=== PATIENT | female | born 1930 | race Caucasian/White ===

== ENCOUNTER 2016-09-04 17:52 | Inpatient (IN) | payer MEDICARE ==
[~2016-09-04] VITALS: Ht 154.9 cm; Wt 70.9 kg
[~2016-09-04 17:52] MED LIST: ACET-785 PO; AMLO2.5T33 PO; ASPI-611 PO; CHOL200026 PO; GLUCOSAMINE; HYDR25SU38 RECTALLY; IBUP200T52 PO; LEVO500T63 PO; LOSA50TA2 PO; METO25TA6 PO; MULT-336 PO; OCUVITE; OMEG500C7 PO; OMEP-80 PO; OSTEO-BIFLEX; RANI-209 PO; SIMV20TA80 PO; TRAM50TA4 PO; TRIA1TAB93 PO
--- OUTSIDE RECORDS SUMMARY | 2016-09-04 17:55 | XMS REPORT | Continuity of Care Document ---
Author Author [facility] Organization [facility] Address Unknown Phone Unavailable Support Name Relationship Address Phone CHEMA HARTMAN MD Caregiver [address] [place] [address] Unavailable CHEMA HARTMAN MD Caregiver [address] [place] [address] Unavailable EMILY FLYNN MD Caregiver [address] [facility] [address] [place] [address] Unavailable CONSTANTINO MEZA Next Of Kin [address] [place] [address] Insurance Providers Guarantor Alma Meza Address [address] [place] [address] Email DENIED 16 Payer Medicareadvantra Ppo Policy Number [id number] Subscriber's Name NolbertoMarcialAlma Relationship 18 Self Group Number [id number] Advance Directives Directive Response Recorded Date/Time Ordered Resuscitation Status Full Code 08/21/16 5:41pm Resuscitation Documents on File No 08/21/16 1:23pm DPOA for Healthcare Only Y Constantino Meza, daughter, Denys Meza, son 1:23pm Living Will Yes 08/21/16 1:23pm Problems Active Problems Medical Problem Onset Date Status Acute abdominal pain Unknown Resolved Constipation by delayed colonic transit Unknown Acute Contusion, orbital tissues Unknown Acute Dyslipidemia Unknown Chronic Hallucinations Unknown Acute History of breast cancer ~08/2016 Resolved Hypertension Unknown Chronic Hypophosphatemia Unknown Acute Laceration of orbital rim without complication Unknown Acute Leukocytosis Unknown Resolved Nausea Unknown Resolved Osteoarthritis Unknown Chronic Severe sepsis Unknown Acute Thrombocytopenia Unknown Acute Medications Current Home Medications Medication Dose Units Route Directions Days Qty Instructions Start Date Acetaminophen (Tylenol) 325 Mg Tablet 650 Mg Oral Three Times A Day 06/02/13 Amlodipine Besylate (Norvasc) 2.5 Mg Tablet 5 Mg Oral Twice A Day 01/15/14 Aspirin 81 Mg Tablet 81 Mg Oral Daily 12/19/09 Cholecalciferol (Vitamin D3) (Vitamin D-3) 2,000 Unit Capsule Oral Daily 08/21/16 Glucosamine Twice A Day 12/19/09 Hydrocortisone Acetate (Anusol-Hc) 25 Mg Supp.rect Rectally Twice A Day as needed for Prn Orders 08/21/16 Ibuprofen 200 Mg Tablet 800 Mg Oral Twice A Day 12/19/09 Levofloxacin (Levaquin) 500 Mg Tablet 500 Mg Oral Daily 7 Days 7 Dose 08/26/16 Losartan Potassium (Cozaar) 50 Mg Tablet 50 Mg Oral Twice A Day 08/21/16 Metoprolol Tartrate 25 Mg Tablet 25 Mg Oral Twice Daily With Meals Take 1 tab, by mouth, two time a day with meals. 08/21/16 Multivit,Ther Iron,Ca,Fa & Min (Theragran-M Caplet) 1 Tab Tablet 1 Tab Oral Daily 06/02/13 Ocuvite Daily 12/19/09 Morrison-3 Fatty Acids (Fish Oil) 500 Mg Capsule 500 Mg Oral Twice A Day 12/19/09 Omeprazole Magnesium 20 Mg Capsule.dr 20 Mg Oral Daily 06/02/13 Osteo-Biflex Three Times A Day 12/19/09 Ranitidine Hcl 75 Mg Tablet 75 Mg Oral Twice A Day 12/19/09 Simvastatin (Zocor) 20 Mg Tablet 20 Mg Oral Bedtime 12/19/09 Tramadol Hcl 50 Mg Tablet 50 Mg Oral Four Times Daily as needed for Prn Orders Take 1 tablet, by mouth, 4 times a day. 08/21/16 Triamterene/Hydrochlorothiazid (Maxzide 37.5 Mg-25 Mg Tablet) 1 Each Tablet 0.5 Tab Oral Daily 08/21/16 Past Home Medications Medication Directions Ordered Status Irbesartan/Hydrochlorothiazide (Avalide 300-12.5 Mg Tablet) 1 Tab Tablet, 1 Tab Oral Daily 12/19/09 Discontinued Social History Social History Problem Response Recorded Date/Time Onset Date Status Reason for Hospitalization abdominal pain 08/26/2016 7:25pm Not Applicable Not Applicable Hx Substance Use No 11/01/2014 7:00pm Not Applicable Not Applicable Hx Alcohol Use No 11/01/2014 7:00pm Not Applicable Not Applicable Has the pt used tobacco in the last 12 months No 08/21/2016 1:27pm Not Applicable Not Applicable Query Response Start Date Stop Date Smoking Status Never smoker Hospital Discharge Instructions Instructions: Care Instructions: Reason for Hospitalization: abdominal pain I was in the hospital because (patient own words): Find out what is giving me all this pain on the right side. Discharge Diet: regular Discharge Activity: as tolerated Follow Up Appointments: 10days CALL DR. HARTMAN OFFICE TO MAKE APPOINTMENT -OFFICE [facility]-[phone] Pending Lab / Results: No Pending Lab Wound/Incision Care: n/a Pain Management/Treatment: tylenol Expected Signs/Symptoms: same Notify Physician If: same During Business Hours:: Please call the physician's office at After Business Hours:: Please call [phone] and have the silica filter operator page the physician. Condition at time of discharge: Good Plan of Care Discharge Date 08/26/16 7:45pm Disposition 01 DISCHARGED HOME, SELF-CARE Instructions/Education Provided Abdominal Pain (ED) Prescriptions See Medication Section Care Plan and Goals See Discharge Instructions Section Functional Status Query Response Date Recorded Mobility Status Ambulatory August 26, 2016 7:25pm Assistive Devices None August 26, 2016 7:25pm Activity Limitations Pain August 26, 2016 7:25pm Feeding Ability Independent August 26, 2016 7:25pm Toileting Ability Independent August 26, 2016 7:25pm Grooming Ability Independent August 26, 2016 7:25pm Dressing Ability Independent August 26, 2016 7:25pm Driving Ability Independent August 26, 2016 7:25pm Housework Ability Independent August 26, 2016 7:25pm Meal Preparation Ability Independent August 26, 2016 7:25pm Stair Climbing Ability Independent August 26, 2016 7:25pm Ability to complete ADL's impeded by No change August 26, 2016 7:25pm Cognitive/Perceptual Impairments Impaired vision August 26, 2016 7:25pm Visual Assistive Devices Glasses With patient August 24, 2016 1:08pm Preferred Method of Learning Reading Listening August 24, 2016 1:08pm Allergies, Adverse Reactions, Alerts Allergen Type Severity Reaction Status Last Updated NKDA Allergy Unknown Active 11/01/14 Immunizations Query Response on File Recorded Date/Time Hx Influenza Vaccination Y fall 201508/21/16 1:27pm Hx Pneumococcal Vaccination Y spring 201508/21/16 1:27pm Hx Influenza Vaccination Y fall 201508/21/16 1:27pm Hx Tetanus Diptheria Y 11/01/14 11/01/14 7:00pm Influenza Vaccine Hx 201508/22/16 7:44am Vital Signs Acute Vital Signs Vital Response Date/Time Temperature (Fahrenheit) 98.8 deg F (96.8 - 99.1) 08/26/2016 3:44pm Temperature (Calculated Celsius) 37.36102 degrees C (36.0 - 37.3) 08/26/2016 3:44pm Pulse Rate (adult) 97 bpm (60 - 100) 08/26/2016 3:44pm Respiratory Rate 18 breaths/min (10 - 20) 08/26/2016 3:44pm O2 Sat by Pulse Oximetry 96 % (90 - 100) 08/26/2016 3:44pm Oxygen Delivery Method Room Air 08/26/2016 3:44pm Blood Pressure 133/66 mm Hg 08/26/2016 3:44pm Blood Pressure Source Automatic Cuff 08/26/2016 3:44pm Height (Feet) 5 feet 08/25/2016 5:12pm Height (Inches) 1.00 inches 08/25/2016 5:12pm Weight (Kilograms) 73.700 kg 08/26/2016 7:31am Body Mass Index (BMI) 29.5 08/21/2016 1:20pm Results Laboratory Results Test Name Result Units Flags Reference Collection Date/Time Result Date/ Time Comments White Blood Count 7.0 T/MM3 4.5-11.0 08/26/2016 4:07am 08/26/2016 5: 09am Red Blood Count 2.90 M/MM3 L 4.00-5.20 08/26/2016 4:07am 08/26/2016 5: 09am Hemoglobin 9.5 GM/DL L 12-16 08/26/2016 4:07am 08/26/2016 5:09am Hematocrit 29.0 % L 36-46 08/26/2016 4:07am 08/26/2016 5:09am Mean Corpuscular Volume 100.0 UM3 80-100 08/26/2016 4:07am 08/26/2016 5 :09am Mean Corpuscular Hemoglobin 32.8 UUG 26-34 08/26/2016 4:07am 2016 5:09am Mean Corpuscular Hemoglobin Concent 32.8 GM/DL 31-37 08/26/2016 4:08/26/2016 5:09am RDW Standard Deviation 42.7 FL 36.9-50.2 08/26/2016 4:08/26/2016 5 :09am Platelet Count 127 T/MM3 L 130-400 08/26/2016 4:08/26/2016 5:09am Mean Platelet Volume 11.7 UM3 9.4-12.4 08/26/2016 4:08/26/2016 5: 09am Neutrophils (%) (Auto) 46.4 % 33-66 08/26/2016 4:08/26/2016 5: 09am Lymphocytes (%) (Auto) 32.2 % 23-45 08/26/2016 4:08/26/2016 5: 09am Monocytes (%) (Auto) 17.6 % H 0-9.0 08/26/2016 4:08/26/2016 5:09am Eosinophils (%) (Auto) 1.1 % 0-4 08/26/2016 4:08/26/2016 5:09am Basophils (%) (Auto) 0.3 % 0-2 08/26/2016 4:08/26/2016 5:09am Immature Granulocyte % (Auto) 2.4 % H 0.0-0.5 08/26/2016 4:2016 5:09am Absolute Neutrophils (auto) 3.3 T/MM3 1.8-7.7 08/26/2016 4:2016 5:09am Absolute Lymphocytes (auto) 2.3 T/MM3 1-4.8 08/26/2016 4:2016 5:09am Absolute Monocytes (auto) 1.2 T/MM3 H 0-0.8 08/26/2016 4:2016 5:09am Absolute Eosinophils (auto) 0.1 T/MM3 0-0.5 08/26/2016 4:2016 5:09am Absolute Basophils (auto) 0.0 T/MM3 0-0.2 08/26/2016 4:08/26/2016 5:09am Absolute Immature Granulocyte (auto 0.17 T/MM3 H 0.00-0.03 08/26/2016 4: 08/26/2016 5:09am Neutrophils % (Manual) 67.0 % H 33-66 08/24/2016 4:32am 08/24/2016 6: 28am Band Neutrophils % 4.0 % 0-6 08/24/2016 4:32am 08/24/2016 6:28am Lymphocytes % (Manual) 18.0 % L 23-45 08/24/2016 4:32am 08/24/2016 6: 28am Monocytes % (Manual) 11.0 % H 0-9.0 08/24/2016 4:32am 08/24/2016 6:28am Eosinophils % (Manual) 1.0 % 0-4 08/23/2016 4:29am 08/23/2016 6:16am Band Neutrophils # 0.4 T/MM3 08/24/2016 4:32am 08/24/2016 6:28am Absolute Neutrophils (Manual) 6.8 T/MM3 1.8-7.7 08/24/2016 4:32am 08/24 6:28am Lymphocytes # (Manual) 1.8 T/MM3 1-4.8 08/24/2016 4:32am 08/24/2016 6: 28am Monocytes # (Manual) 1.1 T/MM3 H 0-0.8 08/24/2016 4:32am 08/24/2016 6: 28am Eosinophils # (Manual) 0.2 T/MM3 0-0.5 08/23/2016 4:29am 08/23/2016 6: 16am Red Cell Morphology Comment NORMAL 08/24/2016 4:32am 08/24/2016 6: 28am Anisocytosis 1+ 08/23/2016 4:29am 08/23/2016 6:16am Poikilocytosis 1+ 08/23/2016 4:29am 08/23/2016 6:16am Ovalocytes 1+ 08/21/2016 1:36pm 08/21/2016 2:34pm Tear Drop Cells 1+ 08/21/2016 1:36pm 08/21/2016 2:34pm Icterus Index < 2 0-7 08/26/2016 4:07am 08/26/2016 5:25am Chemistry Specimen Hemolysis < 15 0-25 08/26/2016 4:am 08/26/2016 5 :25am 0-25: Specimen Exhibited No Hemolysis. Turbidity < 20 0-20 08/26/2016 4:08/26/2016 5:25am Sodium Level 142 MEQ/L 134-144 08/26/2016 4:08/26/2016 5:25am Potassium Level 3.9 MEQ/L 3.6-5 08/26/2016 4:08/26/2016 5:25am Chloride Level 107 MEQ/L 98-107 08/26/2016 4:08/26/2016 5:25am Carbon Dioxide Level 24 MEQ/L 22-30 08/26/2016 4:08/26/2016 5: 25am Anion Gap 11 MEQ/L 5-15 08/26/2016 4:08/26/2016 5:25am Blood Urea Nitrogen 8.0 MG/DL D 7-17 08/26/2016 4:08/26/2016 5:52am Creatinine 0.8 MG/DL 0.7-1.2 08/26/2016 4:08/26/2016 5:25am BUN/Creatinine Ratio 10 RATIO 6-26 08/26/2016 4:08/26/2016 5:25am Glomerular Filtration Rate Calc 68 08/26/2016 4:08/26/2016 5: 25am Glucose Level 109 MG/DL 65-110 08/26/2016 4:08/26/2016 5:25am Calculated Osmolality 272 MOSM/KG 261-280 08/26/2016 4:08/26/2016 5:25am Calcium Level 8.6 MG/DL 8.4-10.2 08/26/2016 4:08/26/2016 5:25am Phosphorus Level 2.4 MG/DL L 2.5-4.5 08/25/2016 5:17am 08/25/2016 6: 52am Total Bilirubin 0.50 MG/DL 0.20-1.30 08/24/2016 4:3208/24/2016 5: 42am Alkaline Phosphatase 46 U/L D 38-126 08/24/2016 4:3208/24/2016 6:01am Total Protein 5.3 G/DL L 6.3-8.2 08/24/2016 4:3208/24/2016 5:42am Albumin 3.0 G/DL L 3.5-5.0 08/25/2016 5:17am 08/25/2016 6:52am Globulin 2.5 G/DL 2.4-3.6 08/24/2016 4:32am 08/24/2016 5:42am Albumin/Globulin Ratio 1.1 RATIO 1.1-2.2 08/24/2016 4:32am 08/24/2016 5 :42am Aspartate Amino Transf (AST/SGOT) 22 U/L 14-36 08/24/2016 4:32am 2016 5:42am Alanine Aminotransferase (ALT/SGPT) 29 U/L 9-52 08/24/2016 4:32am 08/24 5:42am Troponin I < 0.012 ng/ml 0-0.12 08/21/2016 1:36pm 08/21/2016 2:37pm Troponin values with a difference of 55% increase from orginal troponin value represent a true biological DELTA value. (%increase Calc=Orginal Troponin value, divided by subsequent Troponin value, multiplied by 100) Lactate Dehydrogenase 407 U/L 313-618 08/22/2016 3:56pm 08/22/2016 4: 35pm Lipase 246 U/L 23-300 08/21/2016 1:36pm 08/21/2016 2:26pm Magnesium Level 1.7 MG/DL 1.6-2.3 08/25/2016 5:m 08/25/2016 6:52am Uric Acid 5.6 MG/DL 2.5-7.5 08/22/2016 3:56pm 08/22/2016 6:14pm Plasma Lactate 2.2 MMOL/L 0.6-2.2 08/21/2016 8:45pm 08/21/2016 8:58pm Vancomycin Level Trough 9.62 UG/ML L 15-20 08/25/2016 5:17am 08/25/2016 7:03am Carcinoembryonic Antigen 1.43 UG/L 0-3.0 08/22/2016 3:56pm 08/22/2016 5 :06pm CA 27.29 24.99 U/ML 0-37.7 08/22/2016 3:56pm 08/22/2016 4:53pm Urine Collection Type VOIDED-NOT CC-MIDSTR 08/22/2016 10:48am 08/22 10:59am Urine Color YELLOW YELLOW 08/22/2016 10:48am 08/22/2016 10:59am Urine Turbidity CLEAR CLEAR 08/22/2016 10:48am 08/22/2016 10:59am Urine Specific [place] 1.010 L 1.015-1.025 08/22/2016 10:48am 2016 10:59am Urine pH 5.0 5.0-8.0 08/22/2016 10:48am 08/22/2016 10:59am Urine Leukocyte Esterase NEGATIVE NEGATIVE 08/22/2016 10:48am 2016 10:59am Urine Nitrite NEGATIVE NEGATIVE 08/22/2016 10:48am 08/22/2016 10: 59am Urine Protein NEGATIVE NEGATIVE 08/22/2016 10:48am 08/22/2016 10: 59am Urine Glucose (UA) NEGATIVE NEGATIVE 08/22/2016 10:48am 08/22/2016 10 :59am Urine Ketones NEGATIVE NEGATIVE 08/22/2016 10:48am 08/22/2016 10: 59am Urine Urobilinogen 0.2 EU/DL NORMAL 08/22/2016 10:48am 08/22/2016 10: 59am Urine Bilirubin NEGATIVE NEGATIVE 08/22/2016 10:48am 08/22/2016 10: 59am Urine Blood NEGATIVE NEGATIVE 08/22/2016 10:48am 08/22/2016 10:59am Urine WBC 3-5 /HPF 0-5 08/21/2016 2:00pm 08/21/2016 2:49pm Urine RBC 1-3 /HPF 0-3 08/21/2016 2:00pm 08/21/2016 2:49pm Urine Squamous Epithelial Cells 5-10 08/21/2016 2:00pm 08/21/2016 2 :49pm Urine Bacteria 1+ H NEGATIVE 08/21/2016 2:00pm 08/21/2016 2:49pm Urine Culture Indicated CULT NOT INDICATED 08/21/2016 2:00pm 2016 2:49pm Urinalysis Comment MICROSCOPIC NOT IND. 08/22/2016 10:48am 2016 10:59am Blood Smear Pathologist Review SENT FOR REVIEW 08/22/2016 3:56pm 4:50pm Serum Amylase 65 U/L 20-160 08/21/2016 1:36pm 08/21/2016 11:27pm Amylase performed at [facility], [address] [place] [address] Change House Attendant Aman Ledesma DO Erythrocyte Sedimentation Rate 20 mm/h 0-23 08/21/2016 1:36pm 2016 12:22am Sedimentation Rate performed at [facility], [address] [place] [address] Change House Attendant Aman Ledesma DO Microbiology Results Procedure Source Organism/Result Collection Date/Time Result Date/Time Result Status Blood Culture Peripheral/Iv Start NO GROWTH AFTER 5 DAYS 08/21/2016 6:30pm 08/26/2016 6:34pm Final Name: ALMA MEZA Unit #: [id number] : 1930 Sex: F Admit Date: 08/21/16 Loc / Svc: MED Discharge Date: DIAGNOSTIC IMAGING REPORT Report #: [id number] [place], [place] INDICATION: ITS.REASON: sepsis/right upper quadrant pain PROCEDURE: CHEST 2-VIEWS UPRIGHT (PA \T\ LAT) Encounter: Initial COMPARISON: Chest x-ray dated November 01, [address] angiogram of the aorta dated August 21, 2016 FINDINGS: Mild bibasilar scarring is seen on the recent CT. No focal consolidative pneumonia. Elevated right hemidiaphragm. There is no pleural effusion or pneumothorax. The heart size, mediastinal contours and pulmonary vascularity are within normal limits. IMPRESSION: No pneumonia. . Procedures No known history of procedures. Encounters Encounter Location Arrival/Admit Date Discharge/Depart Date Attending Provider Discharged Inpatient [facility] 08/21/16 1:02pm 08/26/16 7:45pm CHEMA HARTMAN MD
[2016-09-04] MEDS ORDERED: AMLO5TAB2 PO (18:15)
[2016-09-04] MEDS ORDERED: NORMAL SALINE 1,000 ML IV ONE (18:15)
[2016-09-04] MEDS ORDERED: OMEG300C PO (18:17)
--- NOTE | 2016-09-04 18:18 | NUR ---
RECTAL EXAM DR. SOTELO RECTAL EXAM WITH RN IN ROOM, NOTED BRIGHT RED BLOOD ON MENSTRAL PAD AND BLOOD AROUND THE RECTUM.
[2016-09-04] MEDS ORDERED: MV-M1TAB38 PO (18:19)
[2016-09-04] MEDS ORDERED: GLUC100015 PO (18:19)
--- NOTE | 2016-09-04 18:21 | ERPDOC ---
Departure Disposition Decision Date: Sep 04, 2016 Disposition Decision Time: 20:18 Disposition: 02 TO [facility] Impression Impression Impression: Primary Impression: Lower GI bleed Severity: Moderate Condition: Improved Seen By: Physician only Referrals: EMILY JOLLEY MD (Family) Problems/Meds/Labs Reviewed?: Yes Medications reviewed and manag: Yes Follow up care ordered?: Yes Mental Status: Alert HPI - General Medical General Chief Complaint: GI Bleed Stated Complaint: RECTAL BLEEDING Time Seen by Provider: 18:06 Source: patient Exam Limitations: no limitations HPI - General Medical Initial Comments Patient has had 2 days of worsening rectal bleeding, to the point that while she is standing in her kitchen blood is running down her legs. Patient was recently dismissed from the hospital after abdominal pain with sepsis, began having periodic episodes of rectal bleeding vessel. Over the course of the week the patient noted several small episodes of rectal bleeding associated with bowel movements, but the last 48 hours they have become significantly worse, with multiple spontaneous episodes of pj blood and clots. Patient was seen by Dr. Gaffney her primary physician earlier today, no physical exam was done at that time, however patient is scheduled for a colonoscopy 2 weeks from now. Today after she returned home the bleeding worsened to the point that she could not stop it at home, and it was running down her legs when she was standing in the kitchen. Occurred At: home Onset: Rapid Severity: moderate Associated Symptoms: DENIES: chest pain, cough, diaphoresis, fever/chills, headaches, loss of appetite, malaise, nausea/vomiting, rash, seizure, shortness of breath, syncope, weakness Hx of Similar Symptoms: No Allergies: Coded Allergies: levofloxacin (Verified Allergy, Severe, HALLUCINATIONS, 09/04/16) Past History Past Medical History Metabolic: cancer (previous breast cancer), hypercholesterolemia, hypertension GI: constipation, other (diverticulosis on previous CT scan) Surgical History Denies Surgeries Vaccines Hx Influenza Vaccination: Yes (fall 2015) Hx Pneumococcal Vaccination: Yes (spring 2015) Hx Tetanus Diptheria: Yes (11/01/14) Social History Smoking Status: Never smoker Does patient use chewing tobac: No Second Hand Exposure: No Substance Use Type: does not use Alcohol Intake: none Record Review Pertinent history updated: Yes Review of Systems Constitutional Constitutional: DENIES: appetite decrease, appetite increase, chills, dizziness , fever, weakness ENMT Ears: DENIES: pain Hearing: DENIES: hearing loss, tinnitus Balance: DENIES: vertigo Mouth/Throat: DENIES: change in swallowing, change in voice, hoarsness, painful swallowing, sore throat Cardiovascular Cardiac: DENIES: chest pain, dyspnea on exertion Rhythm/Rate: DENIES: irregular beat, palpitations, tachycardia Vascular: DENIES: pedal edema Pulmonary Respiratory: DENIES: cough, dyspnea, pleuritic chest pain GI Upper Abdomen: DENIES: dysphagia, heartburn/indigestion, nausea, pain, vomiting Lower Abdomen: blood in stool, DENIES: david-colored stools, constipation, diarrhea, melena, pain General: DENIES: burning, dysuria, frequency, pain, urgency Musculoskeletal General: DENIES: cramps, joint pain, joint swelling, pain, weakness Neurological General: DENIES: headache, numbness, tingling, vertigo, weakness Psychiatric Psychiatric: DENIES: anxiety, depression, nervousness Physical Exam General General Nourishment: well nourished, well developed, appears stated age, no acute distress General Body Habitus: well groomed Vitals and Pain First Documented Vital Signs Date Time Temp Pulse Resp B/P Pulse Ox O2 Delivery O2 Flow Rate FiO2 09/04/16 18:02 98.2 70 14 156/80 97 Room Air Weight: Kilograms: Height (feet): 5 Height (inches): 1.00 Triage Pain Scale: RN VS reviewed by Provider: Yes Normal Exams: Head: Normocephalic w/o trauma Eyes: Pupils are PERRLA w/ EOMI, No scleral icterus, irritation, or foreign bodies noted ENMT: No facial trauma, nasal exudates, pharyngeal erythema, or exudates are noted Neck: Full range of motion, without adenopathy, JVD, bruits or thyromegaly Chest/Resp: Clear all king, with good airflow, and symmetry bilaterally CV: Regular rate and rhythm, without murmur or gallop, Pulses 2+ all extremities, capillary refill, <2 seconds all ext., no pedal edema noted Abdomen: Bowel sounds positive, soft, non-tender, non-distended, no hepatosplenomegaly, masses or bruits noted Lymphatic: No lymphadenopathy, or lymphedema noted Musculoskeletal: No tenderness, or deformity noted, good range of motion, all extremities Integumentary: No rashes, hives, or bruising noted, hair and nails, without abnormality Neurologic: Patient is alert, and oriented, cranial nerves, motor/sensory/ cerebellar, exams w/o gross deficits, to observation Psychiatric: Patient exhibits, appropriate attention, emotion and affect Abdomen (brief) Comments Rectal exam shows some heme positive dark red mucus at the rectum, no active bleeding at this time. Patient does have external hemorrhoids, nonthrombosed, no bleeding is visible. Progress Results/Orders Orders Procedure Category Date Status Time Iv Lock (Ed Only) EDM 09/04/16 Transmitted 18:12 Cbc W/Auto LAB 09/04/16 Complete Diff-Reflex Manual Cmp - Comprehensive LAB 09/04/16 Complete Metabolic Lipase LAB 09/04/16 Complete INR LAB 09/04/16 Complete Normal Saline (Normal PHA 09/04/16 Complete Saline Iv) 18:15 Ct Abd/Pelvis CT 09/04/16 Taken W/Contrast Only Iohexol (Omnipaque) PHA 09/04/16 Complete 19:06 Normal Saline (Ns) PHA 09/04/16 Complete 19:06 Saline Flush (Iv PHA 09/04/16 Complete Flush) 19:06 Place In Facility: ED ADM 09/04/16 Transmitted 20:16 Measure Vital Signs [facility] 09/04/16 Transmitted 20:16 Notify Adm Physician [facility] 09/04/16 Transmitted In Am 20:16 Physician Consult CONS 09/04/16 Transmitted Lab Results Laboratory Tests Test 09/04/16 18:42 White Blood Count 6.7T/MM3 Red Blood Count 2.77M/MM3 Hemoglobin 9.2GM/DL Hematocrit 28.4% Mean Corpuscular Volume 102.5UM3 Mean Corpuscular Hemoglobin 33.2UUG Mean Corpuscular Hemoglobin Concent 32.4GM/DL RDW Standard Deviation 45.7FL Platelet Count 170T/MM3 Mean Platelet Volume 11.2UM3 Immature Granulocyte % (Auto) % Neutrophils (%) (Auto) % Lymphocytes (%) (Auto) % Monocytes (%) (Auto) % Eosinophils (%) (Auto) % Basophils (%) (Auto) % Absolute Immature Granulocyte (auto T/MM3 Absolute Neutrophils (auto) T/MM3 Absolute Lymphocytes (auto) T/MM3 Absolute Monocytes (auto) T/MM3 Absolute Eosinophils (auto) T/MM3 Absolute Basophils (auto) T/MM3 Neutrophils % (Manual) 58.0% Band Neutrophils % 3.0% Lymphocytes % (Manual) 26.0% Monocytes % (Manual) 12.0% Basophils % (Manual) 1.0% Absolute Neutrophils (Manual) 3.9T/MM3 Band Neutrophils # 0.2T/MM3 Lymphocytes # (Manual) 1.7T/MM3 Monocytes # (Manual) 0.8T/MM3 Basophils # (Manual) 0.1T/MM3 Macrocytosis 1+ Red Cell Morphology Comment Abnormal Prothromb Time International Ratio 1.08 Turbidity < 20 Sodium Level 141MEQ/L Potassium Level 4.5MEQ/L Chloride Level 101MEQ/L Carbon Dioxide Level 26MEQ/L Anion Gap 14MEQ/L Blood Urea Nitrogen 22.0MG/DL Creatinine 1.1MG/DL Glomerular Filtration Rate Calc 47 BUN/Creatinine Ratio 20RATIO Glucose Level 107MG/DL Calculated Osmolality 274MOSM/KG Calcium Level 9.9MG/DL Total Bilirubin 0.40MG/DL Icterus Index < 2 Aspartate Amino Transf (AST/SGOT) 29U/L Alanine Aminotransferase (ALT/SGPT) 31U/L Alkaline Phosphatase 54U/L Total Protein 6.5G/DL Albumin 3.8G/DL Globulin 2.7G/DL Albumin/Globulin Ratio 1.4RATIO Lipase 577U/L Chemistry Specimen Hemolysis < 15 Medications Current ED Medications Sodium Chloride (Normal Saline IV) 1,000 ml @ 0 mls/hr Q0M ONCE IV Last administered on 09/04/16t 18:43; Start 09/04/16 at 18:15; Stop 09/04/16 at 18:16 ; Status DC Iohexol 1 bottle 1 bottle STK-MED ONCE .ROUTE ; Start 09/04/16 at 19:06; Stop at 19:07; Status DC Sodium Chloride (NS) 100 ml @ As Directed STK-MED ONCE .ROUTE ; Start 09/04/16 at 19:06; Stop 09/04/16 at 19:07; Status DC Sodium Chloride (Iv Flush) 10 ml STK-MED ONCE .ROUTE ; Start 09/04/16 at 19:06; Stop 09/04/16 at 19:07; Status DC Progress Progress Patient is given 1 L normal saline IV fluid bolus for volume depletion from rectal bleeding CBC - no acute changes, patient continues to be moderately make with hemoglobin 9.2, unchanged from prior studies CMP/L - normal CT abdomen/pelvis - mild distal colonic thickening, no other evidence of pathology. Case is discussed with Dr. Gaffney - we will admit to the hospital for observation, surgical floor, consult to Dr. Delcid for lower GI bleed KIRILL SOTELO MD Sep 04, 2016 18:21
[2016-09-04 18:48] LABS: HCT - HEMATOCRIT 28.4 % (36-46); HGB - HEMOGLOBIN 9.2 GM/DL (12-16); MEAN CORPUSCULAR HGB 33.2 UUG (26-34); MEAN CORPUSCULAR HGB CONC(MCHC 32.4 GM/DL (31-37); MEAN CORPUSCULAR VOLUME 102.5 UM3 (80-100); MEAN PLATELET VOLUME 11.2 UM3 (9.4-12.4); RED BLOOD COUNT 2.77 M/MM3 (4.00-5.20); WBC - WHITE BLOOD COUNT 6.7 T/MM3 (4.5-11.0)
[2016-09-04 18:51] LABS: INR 1.08 (0.76-1.04); PROTHROMBIN TIME 11.8 SEC (9.31-12.49)
[2016-09-04 18:55] LABS: ALBUMIN 3.8 G/DL (3.5-5.0); ALBUMIN/GLOBULIN RATIO 1.4 RATIO (1.1-2.2); ALKALINE PHOSPHATASE 54 U/L (38-126); ALT (SGPT) 31 U/L (9-52); ANION GAP 14 MEQ/L (5-15); AST (SGOT) 29 U/L (14-36); BUN/CREATININE RATIO 20 RATIO (6-26); CALCIUM 9.9 MG/DL (8.4-10.2); CHLORIDE 101 MEQ/L (98-107); CO2 - CARBON DIOXIDE 26 MEQ/L (22-30); CREATININE 1.1 MG/DL (0.7-1.2); GLOMERULAR FILTRATION RATE 47; GLUCOSE 107 MG/DL (65-110); LIPASE 577 U/L (23-300); POTASSIUM 4.5 MEQ/L (3.6-5); SODIUM 141 MEQ/L (134-144); TOTAL PROTEIN 6.5 G/DL (6.3-8.2)
[2016-09-04 19:03] LABS: BAND NEUTROPHILS # 0.2 T/MM3; BASOPHILS # (MANUAL) 0.1 T/MM3 (0-0.2); LYMPHOCYTES # (MANUAL) 1.7 T/MM3 (1-4.8); MONOCYTES # (MANUAL) 0.8 T/MM3 (0-0.8); NEUTROPHILS #(MANUAL)-ABSOLUTE 3.9 T/MM3 (1.8-7.7); TOTAL CELLS COUNTED 100 %
[2016-09-04] MEDS ORDERED: IOHEXOL 300 MG/ML 100ml INJECTION ONE (19:06)
[2016-09-04] MEDS ORDERED: NORMAL SALINE 100 ML ONE (19:06)
[2016-09-04] MEDS ORDERED: SALINE FLUSH 10ml SYRINGE ONE (19:06)
--- NOTE | 2016-09-04 19:07 | NUR ---
TO CT PER CART.
--- NOTE | 2016-09-04 19:24 | NUR ---
BACK FROM CT
--- NOTE | 2016-09-04 19:45 | NUR ---
ELIMINATION PATIENT UP TO BR TO VOID. MINIMAL BLOOD LOSS NOTED AT THIS TIME.
--- NOTE | 2016-09-04 20:32 | NUR ---
REPORT GIVEN TO MURPHY MERCADO ON SURGICAL UNIT. NO QUESTIONS NOTED.
--- NOTE | 2016-09-04 20:37 | NUR ---
ADMISSION TO ROOM 108 PER CART. PATIENT IS SLIGHTLY DIZZY UPON STANDING UP FROM ED BED TO GO TO HOSPITAL ROOM BR. PATIENT IS ABLE TO WALK WITH ASSISTANCE AND THE DIZZINESS PASSES IN 10 SECONDS.
--- NOTE | 2016-09-04 20:38 | NUR ---
ARRIVAL PATIENT ARRIVED BY CART ESCORTED BY EUGENIO, ED RN AND DAUGHTER. PATIENT AMBULATED TO THE BATHROOM AND THEN TO BED. WILL PROCEED WITH ADMISSION.
[2016-09-04 20:45] VITALS: BP 147/54; PULSE 74; RESP 12; TEMP 97.4; O2SAT 97
[2016-09-04 20:53] VITALS: Ht 154.9 cm; Wt 70.9 kg
--- NOTE | 2016-09-04 22:58 | NUR ---
PROVIDER NOTIFICATION I paged Dr. Gaffney in regards to his newly admitted patient. Dr. Gaffney directed a clear diet, CBC and BMP for the am, Protonix 40mg IV BID, and D5 1/2NS with 20meq KCl at 100mL/hr. I have entered orders. Will continue to monitor.
[2016-09-04 23:31] VITALS: BP 139/69; PULSE 68; RESP 20; TEMP 96.5; O2SAT 99
--- NOTE | 2016-09-04 23:43 | NUR ---
PROVIDER NOTIFICATION Paged Dr. Gaffney to clarify medication orders for patient. Reviewed patient's medication list and ordered patient's routine medications holding Advil, ASA, omeprazole, ranitidine, and Vitamin D3, and added Reglan 10mg IV Q4-6Hr PRN for nausea/vomiting. Orders entered.
[2016-09-04] MEDS ORDERED: HYDROCORTISONE 25 MG RECTAL SUPPOSITORY RECTALLY PRN (23:45)
[2016-09-05] VITALS (7 sets, daily range): BP systolic 125–151; BP diastolic 59–72; PULSE 70–89; RESP 16–18; TEMP 96.9–97.9; O2SAT 97–98
[2016-09-05] MEDS: D5-1/2 NS KCL 20 MEQ 1,000 ML IV SCH ×4 (00:07→21:02)
[2016-09-05] MEDS: TRAMADOL 50 MG TABLET PO PRN ×2 (00:22→12:42)
[2016-09-05 05:01] LABS: BASOPHILS % (AUTO) 0.2 % (0-2); EOSINOPHILS % (AUTO) 0.7 % (0-4); HCT - HEMATOCRIT 25.4 % (36-46); HGB - HEMOGLOBIN 8.2 GM/DL (12-16); IMMATURE GRANULOCYTE # (AUTO) 0.03 T/MM3 (0.00-0.03); IMMATURE GRANULOCYTE % (AUTO) 0.5 % (0.0-0.5); LYMPHOCYTES % (AUTO) 35.7 % (23-45); MEAN CORPUSCULAR HGB 33.1 UUG (26-34); MEAN CORPUSCULAR HGB CONC(MCHC 32.3 GM/DL (31-37); MEAN CORPUSCULAR VOLUME 102.4 UM3 (80-100); MEAN PLATELET VOLUME 11.3 UM3 (9.4-12.4); MONOCYTES # (AUTO) 1.1 T/MM3 (0-0.8); MONOCYTES % (AUTO) 18.7 % (0-9.0); NEUTROPHILS #(AUTO)-ABSOLUTE 2.5 T/MM3 (1.8-7.7); NEUTROPHILS % (AUTO) 44.2 % (33-66); RED BLOOD COUNT 2.48 M/MM3 (4.00-5.20); WBC - WHITE BLOOD COUNT 5.6 T/MM3 (4.5-11.0)
[2016-09-05 05:38] LABS: ANION GAP 8 MEQ/L (5-15); BUN/CREATININE RATIO 18 RATIO (6-26); CALCIUM 9.6 MG/DL (8.4-10.2); CHLORIDE 105 MEQ/L (98-107); CO2 - CARBON DIOXIDE 28 MEQ/L (22-30); CREATININE 0.9 MG/DL (0.7-1.2); GLOMERULAR FILTRATION RATE 60; GLUCOSE 136 MG/DL (65-110); POTASSIUM 4.4 MEQ/L (3.6-5); SODIUM 141 MEQ/L (134-144)
--- NOTE | 2016-09-05 05:38 | NUR ---
SHIFT SUMMARY PATIENT IS ALERT AND ORIENTED X3 THIS SHIFT. VITAL SIGNS ARE STABLE ON ROOM AIR. PATIENT AMBULATES WELL WITH STAND BY. PATIENT CONTINUES TO HAVE RECTAL BLEEDING. PATIENT REPORTED DISCOMFORT RELATED TO CHRONIC BACK PAIN EARLY IN SHIFT. DR HARTMAN WAS CONTACTED TO VERIFY HOME MEDS AND TRAMADOL WAS GIVEN. PATIENT HAS SLEPT WELL SINCE. WILL CONTINUE TO MONITOR.
--- NOTE | 2016-09-05 08:11 | DI ---
Indication: ITS.REASON: worsening rectal bleeding with history of diverticulosis PROCEDURE: CT ABD/PELVIS W/CONTRAST ONLY: Encounter: Initial Comparison: August 21, 2016 Technique: Axial CT images were performed through the abdomen and pelvis after the administration of intravenous contrast. Coronal and sagittal two-dimensional reformats. Automated Exposure Control and Iterative Reconstruction dose reducing techniques were utilized. Contrast: Omnipaque 300 100 mL Findings: Mild scarring or fibrosis in the lung bases. The liver appears normal. Gallbladder is unremarkable. The spleen, pancreas and adrenal glands are within normal limits. Kidneys are unremarkable. Atherosclerotic plaque. Bladder is grossly normal. Uterus is within normal limits. No free fluid. Sigmoid diverticulosis without evidence of acute diverticulitis. No bowel obstruction. Bone windows show degenerative change and scoliosis in the spine. Impression: No acute disease process seen. There is a preliminary report by [employer] radiologic. .
[2016-09-05] MEDS: MULTIVITAMIN PLAIN TABLET PO SCH (08:25)
[2016-09-05] MEDS: OMEGA-3 ACID ESTERS 1 G CAPSULE PO SCH ×2 (08:25→22:05)
[2016-09-05] MEDS: MULTIVIT + MINERALS (OPTI-GEN) PO SCH (08:26)
[2016-09-05] MEDS: HCTZ PO SCH (08:26)
[2016-09-05] MEDS: GLUCOSAMINE 500 MG CAPSULE PO SCH ×2 (08:26→22:05)
[2016-09-05] MEDS: TRIAMTERENE PO SCH (08:26)
[2016-09-05] MEDS: POM LOSARTAN 50 MG TABLET PO SCH ×2 (08:26→22:00)
[2016-09-05] MEDS: PANTOPRAZOLE 40mg INJECTION IV SCH ×2 (08:27→22:06)
[2016-09-05] MEDS: POM AMLODIPINE 5 MG TABLET PO SCH ×2 (08:27→22:00)
[2016-09-05] MEDS: ACETAMINOPHEN 325 MG TABLET PO SCH ×3 (08:27→17:58)
[2016-09-05] MEDS: POM METOPROLOL TARTRATE 25mg TABLET PO SCH ×2 (08:27→17:57)
--- NOTE | 2016-09-05 09:29 | NUR ---
Output Pt up to BR to void X2 for this RN's shift so far with adequate urine output, Pt continues to drip bright red blood from the rectum. No BM. Pt states "it seems to drip more when I stand and go to the bathroom." Pt denies pain and dizziness. Will continue to monitor.
--- NOTE | 2016-09-05 09:33 | NUR ---
CM CM VISITED PT AND DAUGHTER. CM EXPLAINED ROLE AND PROVIDED CONTACT INFORMATION. PT PLANS TO RETURN HOME AT TIME OF D/C FROM [facility]. PT DENIES NEEDS AT THIS TIME. PT IS AWARE TO LET CM KNOW IF NEEDS ARISE.
--- NOTE | 2016-09-05 13:15 | NUR ---
Output/BM update Pt has been assisted to the BR twice this afternoon with 2 BM's, very little to no blood noted at both times by Megha Ross RN and Elke Beach RN. Will continue to monitor.
[2016-09-05 15:20] LABS: HGB - HEMOGLOBIN 8.6 GM/DL (12-16)
--- NOTE | 2016-09-05 15:25 | HPF ---
CHIEF COMPLAINT Rectal bleeding. HPI The patient is an 86-year-old female that I saw at the office yesterday, 09/04/2016, for followup on recent hospitalization for acute gastroenteritis. She did well until about three days ago when she started having rectal bleeding. She has had many episodes of rectal bleeding with blood clots from the rectum. We repeated a CBC in the office. Hemoglobin was 9.2. It hasn't changed much. She had a history of mild diverticular disease based on a colonoscopy done in December 2009. We scheduled patient for a colonoscopy on an outpatient basis during that office visit. However, patient was admitted through [facility] ER yesterday because she has continued having rectal bleeding with every bowel movement. They were worried about dehydration. This patient has been admitted to outpatient unit at [facility] for observation and surgical consultation for colonoscopy or EGD. In addition, she was black tarry stools as well. PAST MEDICAL HISTORY Breast cancer. Dyslipidemia. Hypertension. Constipation. Diverticular disease. ALLERGIES Allergy listed as Levaquin - causing severe hallucinations. FAMILY HISTORY Not really relevant to this admission. REVIEW OF SYSTEMS As in HPI. No fever. No chills. No significant abdominal pain. Denies any nausea or vomiting. She does have chronic back pain. CURRENT MEDICATIONS 1. Tylenol 650 mg one tablet t.i.d. p.r.n. 2. Amlodipine 5 mg one tablet p.o. b.i.d. 3. Aspirin 81 mg one tablet daily. 4. Vitamin D3 2,000 IU daily. 5. Glucosamine one tablet p.o. b.i.d. 6. Anusol-HC b.i.d. p.r.n. 7. Ibuprofen 800 mg p.o. b.i.d. 8. Cozaar 50 mg p.o. b.i.d. 9. Metoprolol 25 mg p.o. b.i.d. 10. Multivitamin one tablet daily. 11. Ocuvite + Multivitamin one tablet daily. 12. [place]-3 fish oil one tablet p.o. b.i.d. 13. Omeprazole 20 mg one tablet a.c. breakfast. 14. Ranitidine 75 mg one tablet p.o. b.i.d. 15. Zocor 20 mg one tablet p.o. q.h.s. 16. Tramadol 50 mg one tablet p.o. q.i.d. p.r.n. 17. Maxzide 37.5/25 mg half a tablet daily. PHYSICAL EXAMINATION VITAL SIGNS: This morning when I saw the patient, blood pressure 151/65 with pulse of 89, temperature 97.9, respiration 18, O2 sat 98% on room air. GENERAL: The patient looks comfortable, in no distress. HEENT: Unremarkable. NECK: Supple. CHEST: Lungs sound clear. CARDIOVASCULAR: Regular rate and rhythm. ABDOMEN: Soft. Patient is tender in the lower quadrant region. .Bowel sounds normoactive. Not acute surgical abdomen, i.e., no rebound or guarding. EXTREMITIES: No cyanosis. No edema. NEURO EXAM: Grossly intact. LABORATORY Lab done yesterday at the hospital: Hemoglobin 9.2, essentially the same as in the office setting. White blood count 6.7. Platelet count 170,000. Electrolytes were normal. Creatinine 1.1. Lipase 577 (I'm not sure what that is from). Liver function tests were normal. INR is 1.08. ASSESSMENT 1. Acute rectal bleeding - upper GI versus lower GI with both hematochezia and melena. 2. History of mild diverticular disease. 3. Recent admission for acute severe abdominal pain, acute sepsis, thrombocytopenia. PLAN Admit patient to [facility] on an outpatient basis to observe patient's hemodynamic status. IV fluids. Resume home medications. Surgical consultation to Dr. Delcid has been initiated. Repeat lab in the morning. JAMES
[2016-09-05] MEDS ORDERED: BISACODYL 5 MG E.C. TABLET PO ONE (16:00)
--- NOTE | 2016-09-05 17:19 | CONSF ---
DATE OF CONSULTATION 09/05/2016 CONSULTING PHYSICIAN Rafita Delcid MD REQUESTING PHYSICIAN Dr. Gaffney REASON FOR CONSULTATION Rectal bleeding. IMPRESSION 1. Hematochezia - likely diverticular in origin. 2. Acute blood loss anemia with hemoglobin of 8.2 secondary to GI blood losses. RECOMMENDATIONS 1. I did discuss observation with dismissal and proceeding with scheduled outpatient colonoscopy or inpatient colonoscopy with the patient and her family. She wanted to proceed with colonoscopy during this hospital stay. 2. I will proceed with bowel prep this evening if recheck hemoglobin is stable. 3. N.p.o. at midnight. 4. Recheck hemoglobin has already been ordered by Dr. Gaffney HISTORY OF PRESENT ILLNESS Alma is an 86-year-old female who is well known to my surgical practice. I had seen her two weeks ago for abdominal pain of uncertain etiology. No clear etiology had been discovered at that point. She had been dismissed from the hospital and was doing well until she developed rectal bleeding Friday evening. She was passing bright red blood with bowel movements but also had episodes of passage of bright red blood and clots without any stool. She was not having any abdominal pain. Her symptoms continued on into Friday and she continued to observe the problem. On Friday morning (yesterday) she was scheduled for a recheck with Dr. Gaffney for hospital followup. She had mentioned the trouble with the bleeding and she was scheduled for an outpatient colonoscopy by Dr. Flynn on 09/18/2016. Her bleeding worsened and she was having blood drip while she was standing in the kitchen. She contacted Dr. Gaffney's office who recommended that she be evaluated in the emergency department. She was seen in the ED and was noted to have a hemoglobin that was stable at 9.2 but she was admitted to the hospital given the bleeding. This morning she had two bowel movements and the nurse had noticed that she had had some dripping blood with the bowel movements. This afternoon she has had two more bowel movements that have had much less blood. The only blood now is bright red blood on the toilet paper when wiping. She is not noting blood in the bowel movement. Her repeat hemoglobin this morning was 8.2. I have been consulted this morning given the GI bleeding. PAST MEDICAL HISTORY 1. Lobular left breast cancer - diagnosed in 1992 and treated with bilateral mastectomy. 2. Osteoarthritis. 3. Hypercholesterolemia. 4. Hypertension. 5. Recent admission for sepsis of uncertain etiology in August 2016. 6. Sigmoid diverticulosis. PAST SURGICAL HISTORY 1. Arthroscopy of the right knee - 1988. 2. Bilateral total knee replacements. 3. Laser eye surgery. 4. Bilateral mastectomy - April 1993. 5. Colonoscopy - August 2003. 6. Colonoscopy - 12/19/[address] Flynn. Colonoscopy was normal except for mild diverticulosis. 7. Laparoscopic appendectomy with primary umbilical hernia repair 06/04/[address] Delcid. 8. Laparoscopic left salpingo-oophorectomy 06/04/[address] Janee Castro. ALLERGIES No known drug allergies. MEDICATIONS The patient's hospital meds were reviewed. See the hospital MAR. SOCIAL HISTORY The patient is to her Shailseh. They have four children. She has never smoked and does not use alcohol. She is retired and previously worked at [employer] [place]. FAMILY HISTORY Father - at age 68 with cardiac problems. Mother - at age 90 of unknown causes. Sister - at age 60 of cervical and breast cancer. Brother - at 80 of Parkinson's disease. Brother - at 59 of a cerebral aneurysm. Brother - at age 75 of sudden with a history of alcohol use. REVIEW OF SYSTEMS 10-point review of systems was negative except for history of present illness and the following: MUSCULOSKELETAL: She continues to have chronic back pain and chronic joint pain. HEMATOLOGIC: She has been taking an 81-mg aspirin. It has been held in the hospital but she was taking it at home. ENDOCRINE: Cold intolerance. PHYSICAL EXAMINATION Vital signs: Temperature 97.5, pulse 70, blood pressure 125/72, respiratory rate 16, oxygen saturation 98% on room air. GENERAL: The patient is awake, alert, in no acute distress. HEENT: Sclerae clear. Extraocular is intact. NECK: Supple with a midline trachea. No lymphadenopathy or thyromegaly are noted. HEART: Regular rate and rhythm. LUNGS: Clear to auscultation bilaterally. ABDOMEN: Soft, nontender, nondistended. No masses, fluid, organomegaly, guarding or rebound noted. EXTREMITIES: No clubbing, cyanosis or edema. NEUROLOGIC: Cranial nerves II-XII are grossly intact. PSYCHIATRIC: Normal mood and affect. LABORATORY DATA Hemoglobin last evening was 9.2 and decreased to 8.2 this morning. INR was 1.08. BUN was 22.0 last evening and decreased to 16.0 this morning. Repeat hemoglobin was pending at the time of consultation. IMAGING CT scan the abdomen and pelvis from yesterday was reviewed by report. It showed no acute disease process. Sigmoid diverticulosis was noted on the scan. PATIENT EDUCATION The details, risks and benefits of colonoscopy were discussed with the patient and her family who was present. The discussion included but was not limited to bleeding, perforation requiring surgical repair, complications of anesthesia, possible increase in infection or bleeding if hemorrhoid banding were performed. She voiced understanding and did wish to proceed with colonoscopy and possible hemorrhoid banding. Thank you for allowing me to participate again in Alma's care. I will follow along with you for GI bleed workup. JMAES
[2016-09-05] MEDS ORDERED: POLYETHYL.GLYCOL 3350 BOTTLE 238 GM PO ONE (17:30)
[2016-09-05] MEDS: ONDANSETRON 4mg/2ml INJECTION IV PRN (17:41)
--- NOTE | 2016-09-05 18:21 | NUR ---
Summary Pt A&OX3. VS stable on RA. Family has been present in the room throughout the shift. Bowel prep started this afternoon, Pt did vomit one time. Dr. Delcid notified at that time, see provider notification. PRN IV Zofran given. Pt stated at this time "the nausea has resolved, and my tummy feels better." Pt continues to be up multiple times to the BR with adequate urine output and bright red rectal bleeding. Pt up with standby assistance. Side rails up X2, call light w/in reach, bed alarm on.
[2016-09-05] MEDS: METOCLOPRAMIDE 10mg/2ml INJECTION IV PRN (21:09)
[2016-09-05] MEDS ORDERED: POM SIMVASTATIN 20 MG TABLET PO SCH (22:00)
[2016-09-06] VITALS (23 sets, daily range): BP systolic 94–158; BP diastolic 48–89; PULSE 64–144; RESP 14–52; TEMP 96.4–100.2; O2SAT 91–100
[2016-09-06] MEDS: ONDANSETRON 4mg/2ml INJECTION IV PRN (02:44)
[2016-09-06 05:17] LABS: BASOPHILS % (AUTO) 0.2 % (0-2); EOSINOPHILS % (AUTO) 0.6 % (0-4); HCT - HEMATOCRIT 26.2 % (36-46); HGB - HEMOGLOBIN 8.5 GM/DL (12-16); IMMATURE GRANULOCYTE # (AUTO) 0.05 T/MM3 (0.00-0.03); IMMATURE GRANULOCYTE % (AUTO) 0.8 % (0.0-0.5); LYMPHOCYTES # (AUTO) 1.8 T/MM3 (1-4.8); LYMPHOCYTES % (AUTO) 29.8 % (23-45); MEAN CORPUSCULAR HGB 33.1 UUG (26-34); MEAN CORPUSCULAR HGB CONC(MCHC 32.4 GM/DL (31-37); MEAN CORPUSCULAR VOLUME 101.9 UM3 (80-100); MEAN PLATELET VOLUME 11.4 UM3 (9.4-12.4); MONOCYTES # (AUTO) 1.3 T/MM3 (0-0.8); MONOCYTES % (AUTO) 20.4 % (0-9.0); NEUTROPHILS % (AUTO) 48.2 % (33-66); RED BLOOD COUNT 2.57 M/MM3 (4.00-5.20); WBC - WHITE BLOOD COUNT 6.2 T/MM3 (4.5-11.0)
[2016-09-06] MEDS: METOCLOPRAMIDE 10mg/2ml INJECTION IV PRN (06:23)
[2016-09-06] MEDS ORDERED: LR 1,000 ML IV PRN (07:27)
[2016-09-06] MEDS: POM METOPROLOL TARTRATE 25mg TABLET PO SCH ×2 (07:30→18:00)
[2016-09-06] MEDS: OMEGA-3 ACID ESTERS 1 G CAPSULE PO SCH (07:39)
[2016-09-06] MEDS: ACETAMINOPHEN 325 MG TABLET PO SCH ×3 (07:39→17:59)
[2016-09-06] MEDS: MULTIVIT + MINERALS (OPTI-GEN) PO SCH (07:39)
[2016-09-06] MEDS: MULTIVITAMIN PLAIN TABLET PO SCH (07:39)
[2016-09-06] MEDS: GLUCOSAMINE 500 MG CAPSULE PO SCH (07:39)
--- NOTE | 2016-09-06 07:45 | NUR ---
TO PRE-OP PT TAKEN TO PRE-OP VIA CART AND PACU STAFF. CHART AND CONSENT TAKEN WITH PT. PT STABLE AND ON ROOM AIR AT TIME OF TRANSFER. WILL CONTINUE TO MONITOR.
--- NOTE | 2016-09-06 08:18 | ANESPREOP ---
Anesthesia Record Date and Time DATE: 09/06/16 TIME: 08:15 Pre-Op Diagnosis GI Bleed Proposed Surgical Procedure Colonoscopy NPO since: [place] Allergies: Coded Allergies: levofloxacin (Verified Allergy, Severe, HALLUCINATIONS, 09/04/16) Ht/Wt/BMI Height: 5 ' 1.00 " Weight: 70.900 kg BMI: 30.2 kg/m2 Vital Signs Date Time Temp Pulse Resp B/P Pulse Ox O2 Delivery O2 Flow Rate FiO2 09/06/16 07:55 98.3 73 16 141/62 97 Room Air Medications Inpatient Medications Current Medications Medications (Trade) Dose Ordered Sig/Cl[place] Start Time Stop Time Status Last Admin Dose Admin Potassium Chloride/Dextrose/ Sod Cl (D5-1/2 NS KCl 20 Meq) 1,000 ml @ 100 mls/hr Q10H 09/04/16 23:45 09/05/16 21:02 100 MLS/HR Pantoprazole Sodium (Protonix Iv) 40 mg BID 09/05/16 09:00 09/05/16 22:06 40 MG Amlodipine Besylate (Norvasc) 5 mg BID 09/05/16 09:00 09/05/16 22:00 5 MG Hydrocortisone Acetate (Anusol-Hc) 25 mg BID PRN 09/04/16 23:45 Losartan Potassium (COZAAR 50 mg) 50 mg BID 09/05/16 09:00 09/05/16 22:00 50 MG Multivitamins Therapeutic (Theragran) 1 tab DAILY 09/05/16 09:00 09/05/16 08:25 1 TAB Fidgp-9-Vymh Ethyl Esters (Lovaza) 2 g BID 09/05/16 09:00 09/05/16 22:05 2 G Triamterene/HCTZ (Maxzide-25) 0.5 tab DAILY 09/05/16 09:00 09/05/16 08:26 0.5 TAB Glucosamine Sulfate (Glucosamine Sulfate) 1,000 mg BID 09/05/16 09:00 09/05/16 22:05 1,000 MG Metoprolol Tartrate (Lopressor) 25 mg BIDBS 09/05/16 08:00 09/06/16 07:30 25 MG Multivitamins/ Minerals (Vision) 1 tab DAILY 09/05/16 09:00 09/05/16 08:26 1 TAB Simvastatin (Zocor) 20 mg HS 09/05/16 22:00 09/05/16 22:06 20 MG Tramadol HCl (Ultram) 50 mg QID PRN 09/05/16 00:15 09/05/16 12:42 50 MG Acetaminophen (Tylenol Regular Strength) TAKE ONE TO TWO PILLS W... TIDWM 09/05/16 08:00 09/05/16 17:58 650 MG Ondansetron HCl (Zofran) 4 mg Q6H PRN 09/05/16 17:45 09/06/16 02:44 4 MG Metoclopramide HCl 5 mg 5 mg Q6HR PRN 09/05/16 17:45 09/06/16 06:23 5 MG Lactated Ringer's (Lactated Ringers) 1,000 ml @ 50 mls/hr Q20H PRN 09/06/16 07:27 09/06/16 07:31 50 MLS/HR Acetaminophen (Tylenol) 325 Mg Tablet, 650 MG PO TID PRN for PAIN, (Reported) Last Taken: on 09/04/16 1000 Amlodipine Besylate (Amlodipine Besylate) 5 Mg Tablet, 5 MG PO BID, (Reported) Last Taken: on 09/04/16 09 Aspirin (Aspirin) 81 Mg Tablet, 81 MG PO DAILY, (Reported) Last Taken: on 09/04/16 09 Cholecalciferol (Vitamin D3) (Vitamin D-3) 2, 000 Unit Capsule, 2,000 UNIT PO DAILY, (Reported) Last Taken: on 09/04/16 09 Glucosamine Sulfate 2Kcl (Glucosamine) 1,000 Mg Tablet, 1,000 MG PO BID, (Reported) Last Taken: on 09/04/16 09 Hydrocortisone Acetate (Anusol-Hc) 25 Mg Supp.rect, RECTALLY BID PRN for PRN ORDERS, (Reported) Last Taken: on 09/04/16 0800 Ibuprofen (Ibuprofen) 200 Mg Tablet, 800 MG PO BID, (Reported) Last Taken: on 09/04/16 0900 Losartan Potassium (Cozaar) 50 Mg Tablet, 50 MG PO BID, (Reported) Last Taken: on 09/04/16 0900 Metoprolol Tartrate (Metoprolol Tartrate) 25 Mg Tablet, 25 MG PO BIDWM, (Reported) Last Taken: on 09/04/16 0900 Multivit,Ther Iron,Ca,Fa & Min (Theragran-M Caplet) 1 Tab Tablet, 1 TAB PO DAILY, (Reported) Last Taken: on 09/04/16 09 Mv-Mn/FA/Vit K/Lycop/Lut/Zeaxa (Ocuvite Eye + Multi Tablet) 1 Each Tablet, 1 TAB PO DAILY, (Reported) Last Taken: on 09/04/16 09 [place]-3 Fatty Acids (Fish Oil) Unknown Strength Capsule, Unknown Dose PO BID, (Reported) Last Taken: on 09/04/16 09 Omeprazole Magnesium (Omeprazole Magnesium) 20 Mg Capsule.dr, 20 MG PO ACB, (Reported) Last Taken: on 09/04/16 0830 Ranitidine Hcl (Ranitidine Hcl) 75 Mg Tablet, 75 MG PO BID, (Reported) Last Taken: on 09/04/16 09 Simvastatin (Zocor) 20 Mg Tablet, 20 MG PO HS, (Reported) Last Taken: on 09/03/161999 Tramadol HCl (Tramadol HCl) 50 Mg Tablet, 50 MG PO QID PRN for PRN ORDERS, (Reported) Last Taken: on 09/04/16 1000 Triamterene/Hydrochlorothiazid (Maxzide 37.5 mg -25 mg Tablet) 1 Each Tablet, 0.5 TAB PO DAILY, (Reported) Last Taken: on 09/04/16 0900 Currently on Beta James: Yes Beta James Last Taken: 09/06/16 0730 Medical/Surgical History Anesthesia PMH: Reports: *Hypertension, Arthritis (OSTEO ARTHRITIS), Cancer ( BREAST DOUBLE MASTECTOMY), Denies: *Diabetes, *DE, Anesthesia Reactions, Asthma , Blood Transfusion Reac, CHF, COPD, CVA/Stroke/TIA, Glaucoma, Pacemaker, Seizures, Sleep Apnea Smoking Status: Never smoker Use Chewing Tobacco?: No Second Hand Exposure: No Substance Use Type: does not use Alcohol Intake: none Past Surgical History Orthopedic Surgeries: Yes - BILAT KNEE Abdominal Surgeries: Yes - APPENDIX Genitourinary Surgeries: No Cardiac Surgeries: No Endocrine Surgeries: No Reproductive Surgeries: Yes - LEFT OVARY Neurological Surgeries: No Ear Surgeries: No Nose Surgeries: No Throat Surgeries: No Other Surgeries: Yes - DOUBLE MASTECTOMY Anesthesia Adverse Reactions: FOUND none Family Hx of Anesthesia Advers: none Hx of Motion Sickness: No Pertinent Findings Laboratory Tests 09/05/16 04:24 09/06/16 04:13 Test 09/04/16 18:42 Prothromb Time International Ratio 1.08 (0.76-1.04) EKG Rhythm: Sinus Rhythm Physical Exam Respiratory: Bilat breath sounds equal, Lungs clear Cardiovascular: FOUND Regular rate, rhythm, FOUND No murmur Airway Assessment Mallampati Score: I TMD: 3 Fingerbreadths Neck Extension: Good Overall Assessment: No Airway Concerns ASA: 2 Plan Anesthesia Plan: TIVA Discussion Discussed risks/options/alternatives of anesthesia and questions answered. Patient consents. Nursing pain assessment noted. Present: Family Member Attestation Statement Prior to the delivery of any anesthetic medication, I examined the patient, developed the plan, obtained the patient's consent and discussed the risk and benefits of the procedure with the patient/guardian. BERNARDO RIVAS CRNA Sep 06, 2016 08:18
[2016-09-06] MEDS ORDERED: PROPOFOL 500mg 50 ML IV ONE (08:58)
--- NOTE | 2016-09-06 09:43 | ANESPO ---
Post-Op Note Date 09/06/16 Time: 09:43 Status Pt Participated in Evaluation: Pt participated in person Vital Signs Date Time Temp Pulse Resp B/P Pulse Ox O2 Delivery O2 Flow Rate FiO2 09/06/16 07:55 98.3 73 16 141/62 97 Room Air Respiratory Function: Airway patent, Regular respirations Cardiovascular Function: Regular pulse Telemetry Pattern: SR Pain Level Intensity: 0 Unable to Assess Pain Due To: Pt Sleeping Hydration: IV infusing Complications during Recovery None apparent Follow-Up Instructions Instructions Per Surgeon BERNARDO RIVAS CRNA Sep 06, 2016 09:43
--- NOTE | 2016-09-06 09:54 | GSPOSTPROC ---
Immediate Operative Note DATE: 09/06/16 TIME: 09:52 Postop Diagnosis: * Mucosal abnormality of the cecum * Large friable external hemorrhoids * Moderate internal hemorrhoids * Mild sigmoid diverticulosis * Hematochezia Surgical Procedure: C-scope w/Biopsies Surgeon: Farhana ASA: 2 SHAQUILLE PARK MD Sep 06, 2016 09:54
--- NOTE | 2016-09-06 10:20 | NUR ---
Post op Patient received back from colonoscopy. Alert and oriented. VSS. O2 sats stable on RA. Bowel sounds present. Denies pain. Family at bedside. Post op plan of care reviewed.
[2016-09-06] MEDS: D5-1/2 NS KCL 20 MEQ 1,000 ML IV SCH (10:32)
[2016-09-06] MEDS: PANTOPRAZOLE 40mg INJECTION IV SCH (10:38)
[2016-09-06] MEDS: POM AMLODIPINE 5 MG TABLET PO SCH (10:39)
[2016-09-06] MEDS: TRIAMTERENE PO SCH (10:40)
[2016-09-06] MEDS: HCTZ PO SCH (10:40)
[2016-09-06] MEDS: POM LOSARTAN 50 MG TABLET PO SCH (10:41)
[2016-09-06] MEDS: TRAMADOL 50 MG TABLET PO PRN (13:55)
[2016-09-06 16:50] LABS: HCT - HEMATOCRIT 27.8 % (36-46); HGB - HEMOGLOBIN 9.1 GM/DL (12-16); MEAN CORPUSCULAR HGB 33.6 UUG (26-34); MEAN CORPUSCULAR HGB CONC(MCHC 32.7 GM/DL (31-37); MEAN CORPUSCULAR VOLUME 102.6 UM3 (80-100); MEAN PLATELET VOLUME 11.2 UM3 (9.4-12.4); RED BLOOD COUNT 2.71 M/MM3 (4.00-5.20); WBC - WHITE BLOOD COUNT 8.3 T/MM3 (4.5-11.0)
--- NOTE | 2016-09-06 18:01 | OPNOTEF ---
DATE OF OPERATION 09/06/2016 SURGEON Rafita Delcid MD PREOPERATIVE DIAGNOSES 1. Rectal bleeding. 2. Sigmoid diverticulosis. POSTOPERATIVE DIAGNOSES 1. Mucosal abnormality of the cecum - pathology pending. 2. Large friable external hemorrhoids. 3. Moderate internal hemorrhoids. 4. Mild sigmoid diverticulosis. 5. Hematochezia. PROCEDURE Colonoscopy with biopsies of the cecum. ANESTHESIA TIVA ASA Class 2 INDICATIONS The patient is an 86-year-old female who had been having rectal bleeding as an outpatient and was admitted due to ongoing rectal bleeding. Given the significance of her hematochezia it was felt that she should have a colonoscopy. She had been hospitalized two weeks ago for sepsis and some unknown right-sided abdominal pain. FINDINGS There was an area within the cecum of mucosal abnormality but no definite mass. It also did not appear to be mucosal ulceration but more of an actual flat lesion that involved about 50% of the circumference of the lumen. There was mild sigmoid diverticulosis. There were friable external hemorrhoids and some moderate internal hemorrhoids with no definite evidence of bleeding currently. DESCRIPTION OF PROCEDURE After informed consent was obtained the patient was taken to the endoscopy suite and placed in a left lateral decubitus position. IV anesthesia was administered by the anesthesia team. The patient had received a MiraLAX/Dulcolax bowel prep the day prior. A digital rectal exam was performed and did show moderate friable external hemorrhoids. No masses were noted. An Olympus video colonoscope with an AmplifEYE device in place was inserted and retroflexed to examine the distal rectum. The scope was returned to a neutral position and was advanced to the level of the cecum without difficulty. Moderate sigmoid diverticulosis was noted during scope insertion. Upon reaching the cecum the mucosal abnormality was identified. The pa[place] of ut[place]'s foot was visualized but the ileocecal valve was not able to be fully identified. Biopsies of the mucosal abnormality were taken and were sent to Pathology for analysis. Hemostasis of the biopsy sites was assured prior to scope withdrawal. The scope was withdrawn, examining the remainder of the mucosa circumferentially and no other abnormalities were noted. Upon reaching the rectum the carbon dioxide insufflation was evacuated and the scope was removed. RECOMMENDATIONS 1. Advance diet as tolerated. 2. Await biopsy results to determine the etiology of the mucosal abnormality and see if further intervention is necessary. [facility] HOSPITALMallorie
--- NOTE | 2016-09-06 18:48 | NUR ---
END OF SHIFT REPORT PATIENT A/OX3. ROOM AIR. VITAL SIGNS STABLE. AFEBRILE. DENIES N/V, CHEST PAIN, AND SOA. PT AMBULATED ONCE DURING THE SHIFT. ADEQUATE URINARY OUTPUT. NO DRAINAGE NOTED FROM RECTUM. PT UP WITH ASSIST X1. REGULAR DIET. PT TOLERATED DIET WELL. WILL CONTINUE TO MONITOR.
--- NOTE | 2016-09-06 22:53 | NUR ---
PT discharge summary for 2014. PT teaching completed at bedside. PT denies any questions. She was given her home medication bag with all of her medications to take home. PT was taken to her car by nurse tech via . PT denies being light headed, nauseas, pain, bloody stool and denies pain at the IV site before and after removal. PT a/ox3. PT dismissed at 2014.
--- NOTE | 2016-09-07 12:23 | DSF ---
FINAL DIAGNOSES 1. Acute rectal bleeding due to lower gastrointestinal bleeding. 2. Internal and external hemorrhoids as source of patient's rectal bleeding. 3. Mild sigmoid diverticulosis. 4. Mucosal abnormalities of the cecum. CONSULTANTS Rafita Delcid MD PROCEDURE/SURGERY Patient had a colonoscopy done by Dr. Delcid on 09/06/2016 with multiple biopsies obtained as well. REASON FOR ADMISSION Patient is an 86-year-old female who presented to [facility] Emergency Room on 09/05/2016 with a chief complaint of rectal bleeding. I saw the patient a day earlier. She was having some rectal bleeding for about three days. It does not seem to be slowing down. On the day of examination, her hemoglobin was 9.2 at that time. She was scheduled for colonoscopy the first week of September as well as EGD. When she got home, she was having rectal bleeding with every bowel movement she had during the night. Therefore, the patient came to the emergency room for further evaluation. PHYSICAL EXAMINATION GENERAL: She looks comfortable, in no distress. Exam is unremarkable. ABDOMEN: Some tenderness in the right lower quadrant region. LABORATORY DATA Hemoglobin 9.2. Lipase 577. HOSPITAL COURSE Patient was admitted to outpatient/surgical floor. Patient was initially made n.p.o. Her diet was advanced accordingly. She did receive IV fluids. Serial hemoglobins were checked. Lowest hemoglobin was 8.2. On the day of dismissal, it was back to 91. Electrolytes were fine. Lipase was slightly elevated at 577. Etiology is unclear. She is not really having any abdominal pain. Patient was ambulating and eating well without any difficulty. She was medically stable enough to be sent home at this time. Follow up with me at the office in seven to ten days. She will need hemoglobin to be done sometime next week as well. DISCHARGE MEDICATIONS 1. Tylenol 650 mg 3 times daily p.r.n. 2. Amlodipine 5 mg one tablet p.o. twice daily. 3. Aspirin 81 mg one tablet daily. We will go ahead and hold the patient's ibuprofen for now. 4. Vitamin D3 2000 international units one tablet daily. 5. Glucosamine 1000 mg p.o. twice daily. 6. Anusol-HC rectally twice daily for the next three days as scheduled. 7. Cozaar 50 mg one tablet p.o. twice daily. 8. Metoprolol 25 mg one tablet p.o. twice daily. 9. Multivitamin one tablet daily. 10. Ocuvite plus multivitamin one tablet daily. 11. [place]-3 fish oil one tablet p.o. twice daily. 12. Omeprazole 20 mg one tablet a.c. breakfast. 13. Ranitidine 75 mg one tablet p.o. twice daily. 14. Zocor 20 mg one tablet at bedtime. 15. Tramadol 50 mg one tablet p.o. 4 times daily p.r.n. 16. Maxzide 37.5/25 mg half tablet daily. Medications that were stopped: Ibuprofen was discontinued for now. MTDD
== END 2016-09-06 20:15 | disposition home or self-care (01) | DRG 394 ==
LOC: ED 17:52 → EDHOLD 20:17 → SRG 20:37 → OBSVTOIN 09-05 09:31
PROVIDERS: ADMIT Family Medicine; ATTEND Family Medicine
PROC: 0DBH8ZX Excision of Cecum, Via Natural or Artificial Opening Endoscopic, Diagnostic (ICD-10-PCS; principal; 2016-09-06 08:30)
DX: K64.8 Other hemorrhoids (principal); D62 Acute posthemorrhagic anemia; K64.4 Residual hemorrhoidal skin tags; K57.30 Diverticulosis of large intestine without perforation or abscess without bleeding; I10 Essential (primary) hypertension; K59.00 Constipation, unspecified; E78.5 Hyperlipidemia, unspecified; M19.91 Primary osteoarthritis, unspecified site; Z79.82 Long term (current) use of aspirin
CPT/HCPCS: 36415; 80048; 80053; 83690; 85018; 85025; 85027; 85610; 88305; 88341; 88342; 93005; 96360; 99218

== ENCOUNTER 2016-09-27 11:36 | Observation (INO) | payer MEDICARE ==
[2016-09-27] VITALS (9 sets, daily range): BP systolic 101–144; BP diastolic 54–80; PULSE 99–113; RESP 10–16; TEMP 96.2–98; O2SAT 95–99; Ht 154.9 cm; Wt 71.0 kg
[~2016-09-27] VITALS: Ht 154.9 cm; Wt 71.0 kg
[~2016-09-27 11:36] MED LIST changes: -AMLO2.5T33 PO; +AMLO5TAB2 PO; +GLUC100015 PO; -GLUCOSAMINE; -IBUP200T52 PO; -LEVO500T63 PO; +MV-M1TAB38 PO; -OCUVITE; +OMEG300C PO; -OMEG500C7 PO; -OSTEO-BIFLEX
--- OUTSIDE RECORDS SUMMARY | 2016-09-27 11:40 | XMS REPORT | Continuity of Care Document ---
Author Author [facility] Organization [facility] Address Unknown Phone Unavailable Support Name Relationship Address Phone CHEMA HARTMAN MD Caregiver [address] [place] [address] Unavailable CHEMA HARTMAN MD Caregiver [address] [place] [address] Unavailable KIRILL SOTELO MD Caregiver [address] [place] [address] Unavailable EMILY FLYNN MD Caregiver [address] [facility] [address] [place] [address] Unavailable CONSTANTINO MEZA Next Of Kin [address] [place] [address] Insurance Providers Guarantor Alma Meza Address [address] [place] [address] Email DENIED 09-04-16 Payer [employer] Ppo Policy Number [id number] Subscriber's Name Alma Meza Relationship 18 Self Group Number [id number] Advance Directives Directive Response Recorded Date/Time Advanced Directives Type None 09/04/16 6:02pm Ordered Resuscitation Status Full Code 09/04/16 8:17pm Resuscitation Documents on File No 09/04/16 8:54pm DPOA for Healthcare Only Y CONSTANTINO MEZA - DAUGHTER 09/04/16 8:54pm Living Will Yes 09/04/16 8:54pm Chief Complaint and Reason for Visit Chief Complaint LOWER GI BLEED Reason for Visit Thrombocytopenia Problems Active Problems Medical Problem Onset Date Status Acute abdominal pain Unknown Resolved Constipation by delayed colonic transit Unknown Acute Contusion, orbital tissues Unknown Acute Dyslipidemia Unknown Chronic Hallucinations Unknown Acute History of breast cancer ~08/2016 Resolved Hypertension Unknown Chronic Hypophosphatemia Unknown Acute Laceration of orbital rim without complication Unknown Acute Leukocytosis Unknown Resolved Lower GI bleed Unknown Acute Nausea Unknown Resolved Osteoarthritis Unknown Chronic Severe sepsis Unknown Acute Thrombocytopenia Unknown Acute Medications Current Home Medications Medication Dose Units Route Directions Days Qty Instructions Start Date Acetaminophen (Tylenol) 325 Mg Tablet 650 Mg Oral Three Times A Day as needed for Pain 06/02/13 Amlodipine Besylate 5 Mg Tablet 5 Mg Oral Twice A Day 09/04/16 Aspirin 81 Mg Tablet 81 Mg Oral Daily 12/19/09 Cholecalciferol (Vitamin D3) (Vitamin D-3) 2,000 Unit Capsule 2,000 Unit Oral Daily 08/21/16 Glucosamine Sulfate 2KCL (Glucosamine) 1,000 Mg Tablet 1,000 Mg Oral Twice A Day 09/04/16 Hydrocortisone Acetate (Anusol-Hc) 25 Mg Supp.rect Rectally Twice A Day as needed for Prn Orders 08/21/16 Losartan Potassium (Cozaar) 50 Mg Tablet 50 Mg Oral Twice A Day 08/21/16 Metoprolol Tartrate 25 Mg Tablet 25 Mg Oral Twice Daily With Meals 08/21/16 Multivit,Ther Iron,Ca,Fa & Min (Theragran-M Caplet) 1 Tab Tablet 1 Tab Oral Daily 06/02/13 Mv-Mn/Fa/Vit K/Lycop/Lut/Zeaxa (Ocuvite Eye + Multi Tablet) 1 Each Tablet 1 Tab Oral Daily 09/04/16 [place]-3 Fatty Acids (Fish Oil) Unknown Strength Capsule Unknown Dose Oral Twice A Day 09/04/16 Omeprazole Magnesium 20 Mg Capsule.dr 20 Mg Oral Before Breakfast 06/02/13 Ranitidine Hcl 75 Mg Tablet 75 Mg Oral Twice A Day 12/19/09 Simvastatin (Zocor) 20 Mg Tablet 20 Mg Oral Bedtime 12/19/09 Tramadol Hcl 50 Mg Tablet 50 Mg Oral Four Times Daily as needed for Prn Orders 08/21/16 Triamterene/Hydrochlorothiazid (Maxzide 37.5 Mg-25 Mg Tablet) 1 Each Tablet 0.5 Tab Oral Daily 08/21/16 Past Home Medications Medication Directions Ordered Status Ibuprofen 200 Mg Tablet, 800 Mg Oral Twice A Day 12/19/09 Discontinued Irbesartan/Hydrochlorothiazide (Avalide 300-12.5 Mg Tablet) 1 Tab Tablet, 1 Tab Oral Daily 12/19/09 Discontinued Social History Social History Problem Response Recorded Date/Time Onset Date Status Reason for Hospitalization ACUTE LOWER GI BLEED 09/06/2016 6:41pm Not Applicable Not Applicable Hx Substance Use No 09/04/2016 8:28pm Not Applicable Not Applicable Hx Alcohol Use No 09/04/2016 8:28pm Not Applicable Not Applicable Has the pt used tobacco in the last 12 months No 08/21/2016 1:27pm Not Applicable Not Applicable Query Response Start Date Stop Date Smoking Status Never smoker Hospital Discharge Instructions Instructions: Care Instructions: I was in the hospital because (patient own words): "WELL BECAUSE OF BLEEDING" Discharge Diet: regular Discharge Activity: as tolerated. Follow Up Appointments: 7-10days Pending Lab / Results: No Pending Lab Expected Signs/Symptoms: same Notify Physician If: same During Business Hours:: Please call the physician's office at After Business Hours:: Please call [phone] and have the straw hat machine operator page the physician. Pain Management/Treatment: tylenol otc prn Wound/Incision Care: not applicable. Condition at time of discharge: Good Plan of Care Discharge Date 09/06/16 8:15pm Disposition 01 DISCHARGED HOME, SELF-CARE Instructions/Education Provided Gastrointestinal Bleeding (DC) Colonoscopy (DC) Prescriptions See Medication Section Care Plan and Goals See Discharge Instructions Section Functional Status Query Response Date Recorded Mobility Status Ambulatory September 04, 2016 8:46pm Assistive Devices None September 04, 2016 8:46pm Activity Limitations Dizziness Pain September 04, 2016 8:46pm Feeding Ability Independent September 04, 2016 8:46pm Toileting Ability Independent September 04, 2016 8:46pm Grooming Ability Independent September 04, 2016 8:46pm Dressing Ability Independent September 04, 2016 8:46pm Driving Ability Independent September 04, 2016 8:46pm Housework Ability Independent September 04, 2016 8:46pm Meal Preparation Ability Independent September 04, 2016 8:46pm Stair Climbing Ability Independent September 04, 2016 8:46pm Ability to complete ADL's impeded by No change September 04, 2016 8:54pm Cognitive/Perceptual Impairments Impaired vision September 04, 2016 8:46pm Visual Assistive Devices Glasses With patient September 04, 2016 8:46pm Preferred Method of Learning Hands on September 04, 2016 8:46pm Allergies, Adverse Reactions, Alerts Allergen Type Severity Reaction Status Last Updated Levofloxacin Allergy Severe HALLUCINATIONS Active 09/04/16 Immunizations Query Response on File Recorded Date/Time Hx Influenza Vaccination Y 02/201609/04/16 9:00pm Hx Pneumococcal Vaccination Y [place] 09/04/16 9:00pm Hx Influenza Vaccination Y 02/201609/04/16 9:00pm Hx Tetanus Diptheria Y 6/16/15 06/16/15 7:00pm Influenza Vaccine Hx 2016 09/04/16 8:28pm Vital Signs Acute Vital Signs Vital Response Date/Time Temperature (Fahrenheit) 98.3 deg F (96.8 - 99.1) 09/06/2016 7:25pm Temperature (Calculated Celsius) 36.40703 degrees C (36.0 - 37.3) 09/06/2016 7:25pm Temperature Source Oral 09/06/2016 7:25pm Pulse Rate (adult) 89 bpm (60 - 100) 09/06/2016 7:25pm Respiratory Rate 16 breaths/min (10 - 20) 09/06/2016 7:25pm O2 Sat by Pulse Oximetry 95 % (90 - 100) 09/06/2016 7:25pm Oxygen Delivery Method Room Air 09/06/2016 7:25pm Oxygen Delivery Method Room Air 09/06/2016 10:10am Oxygen Flow Rate 6.00 L/min 09/06/2016 9:40am Blood Pressure 132/54 mm Hg 09/06/2016 7:25pm Blood Pressure Source Automatic Cuff 09/06/2016 7:25pm Height (Feet) 5 feet 09/04/2016 8:53pm Height (Inches) 1.00 inches 09/04/2016 8:53pm Weight (Kilograms) 70.900 kg 09/06/2016 7:16am Body Mass Index (BMI) 30.2 09/04/2016 8:53pm Results Laboratory Results Test Name Result Units Flags Reference Collection Date/Time Result Date/ Time Comments Eosinophils % (Manual) 1.0 % 0-4 08/23/2016 4:29am 08/23/2016 6:16am Eosinophils # (Manual) 0.2 T/MM3 0-0.5 08/23/2016 4:29am 08/23/2016 6: 16am Anisocytosis 1+ 08/23/2016 4:29am 08/23/2016 6:16am Poikilocytosis 1+ 08/23/2016 4:29am 08/23/2016 6:16am Ovalocytes 1+ 08/21/2016 1:36pm 08/21/2016 2:34pm Tear Drop Cells 1+ 08/21/2016 1:36pm 08/21/2016 2:34pm Phosphorus Level 2.4 MG/DL L 2.5-4.5 08/25/2016 5:17am 08/25/2016 6: 52am Troponin I < 0.012 ng/ml 0-0.12 08/21/2016 1:36pm 08/21/2016 2:37pm Troponin values with a difference of 55% increase from orginal troponin value represent a true biological DELTA value. (%increase Calc=Orginal Troponin value, divided by subsequent Troponin value, multiplied by 100) Lactate Dehydrogenase 407 U/L 313-618 08/22/2016 3:56pm 08/22/2016 4: 35pm Magnesium Level 1.7 MG/DL 1.6-2.3 08/25/2016 5:17am 08/25/2016 6:52am Uric Acid 5.6 MG/DL 2.5-7.5 [...] CLEAR 08/22/2016 10:48am 08/22/2016 10:59am Urine Specific [place] 1.010 L 1.015-1.025 08/22/2016 10:48am 2016 10:59am [...] 08/21/2016 1:36pm 08/21/2016 11:27pm Amylase performed at [facility] Reference Lab, [address] [place] [address] On Air Announcer Aman Ledesma, Flow Cytometry Interpretation See Comment 08/22/2016 3:56pm 2016 10:41am Specimen: Peripheral Blood * Pathologist Interpretation: No evidence of circulating blasts or profile of dysgranulopoiesis. No evidence of non-Hodgkin lymphoma/leukemia. Hieu Bach M.D. 08/26/16 * Findings: Blast Population(s): Paron description and % total cells: CD45 vs SCC; CD34 vs SCC; CD117 vs SCC; about 0% of the total cells. Phenotype: No blasts detected, cells negative for CD34, CD117, and CD33. * Lymphocytes: Paron description and % total cells:CD45 vs SCC; about 7% of the total cells (T, B, and NK combined) Phenotype:The T-lymphocytes are moderately CD45+, CD2+,CD3+, CD4+, CD8+ (CD4:CD8 ratio=1.7), CD5+,CD7+; dimly CD38+. The T-cells compose about 60 % of the gated lymphocytes. A sub-population of T-Large granular lymphocytes is present that are CD3+/CD16+/CD56+ and compose about 23% of the gated lymphocytes. The B-lymphocytes are moderately CD45+/CD19+/CD20+/HLA-dr+/Surface [place]+/Surface Lambda+ ([place]:Lambda ratio 1.3); dimly CD38+; negative for CD5, CD10, CD23. The B-cells compose about 7 % of the gated lymphocytes. The natural killer cells (CD3-/CD16+ and/or CD3-/CD56+) compose about. 9 % of the gated lymphocytes. * Monocytes: Paron description and % total cells:CD45 vs SCC; CD14 vs SCC; CD64 vs SCC; about 18% of the total cells. Phenotype: The monocytes are brightly CD45+ and CD14+; moderately CD11b+/CD11c+/CD33+/CD64+/HLA-dr+; dimly CD4+/CD13+/CD15+; negative for CD23 and CD56. * Granulocytes: Paron description: CD45 vs SCC Phenotype:The granulocytes are moderately CD11b+/CD15+/CD16+; dimly CD10+/CD11c+/CD13+/CD33+/CD64+ ; negative for CD56, CD117, and HLA-dr. * Additional Antibodies: Surface [place], Surface Lambda, CD38 Flow Cytometry Comment See Comment 08/22/2016 3:56pm 08/29/2016 10: 41am Performed Antibodies: CD3, CD4, CD8, CD20, CD19, CD10, HLA-DR, CD23, CD5, CD34, CD7, CD45, CD117, CD13, CD33, CD14, CD15, CD16, CD56, CD2, CD64, CD41, CD11c, CD11b, and Glycophorin A. - This test or one or more of its components was developed and its performance characteristics determined by [facility]. It has not been cleared or approved by U.S. Food and Drug Administration. The FDA has determined that such clearance or approval is not necessary. This test is used for clinical purposes. It should not be regarded as investigational or for research. This Laboratory is certified under the Clinical Laboratory Improvement Amendments of 1988 ('CLIA') as qualified to perform high complexity clinical laboratory testing. Flow, Leukemia Panel performed at [facility], [address] [place] [address] On Air Announcer Aman Ledesma DO Erythrocyte Sedimentation Rate 20 mm/h 0-23 08/21/2016 1:36pm 2016 12:22am Sedimentation Rate performed at [facility] Reference [facility], [facility] [place] [address] On Air Announcer Aman Ledesma, DO White Blood Count 8.3 T/MM3 4.5-11.0 09/06/2016 4:09/06/2016 4: 50pm Red Blood Count 2.71 M/MM3 L 4.00-5.20 09/06/2016 4:09/06/2016 4: 50pm Hemoglobin 9.1 GM/DL L 12-16 09/06/2016 4:09/06/2016 4:50pm Hematocrit 27.8 % L 36-46 09/06/2016 4:09/06/2016 4:50pm Mean Corpuscular Volume 102.6 UM3 H 80-100 09/06/2016 4:09/06/2016 4:50pm Mean Corpuscular Hemoglobin 33.6 UUG 26-34 09/06/2016 4:2016 4:50pm Mean Corpuscular Hemoglobin Concent 32.7 GM/DL 31-37 09/06/2016 4:09/06/2016 4:50pm RDW Standard Deviation 46.9 FL 36.9-50.2 09/06/2016 4:09/06/2016 4 :50pm Platelet Count 184 T/MM3 130-400 09/06/2016 4:09/06/2016 4:50pm Mean Platelet Volume 11.2 UM3 9.4-12.4 09/06/2016 4:09/06/2016 4: 50pm Neutrophils (%) (Auto) 48.2 % 33-66 09/06/2016 4:09/06/2016 5: 17am Lymphocytes (%) (Auto) 29.8 % 23-45 09/06/2016 4:09/06/2016 5: 17am Monocytes (%) (Auto) 20.4 % H 0-9.0 09/06/2016 4:09/06/2016 5:17am Eosinophils (%) (Auto) 0.6 % 0-4 09/06/2016 4:09/06/2016 5:17am Basophils (%) (Auto) 0.2 % 0-2 09/06/2016 4:09/06/2016 5:17am Immature Granulocyte % (Auto) 0.8 % H 0.0-0.5 09/06/2016 4:2016 5:17am Absolute Neutrophils (auto) 3.0 T/MM3 1.8-7.7 09/06/2016 4:2016 5:17am Absolute Lymphocytes (auto) 1.8 T/MM3 1-4.8 09/06/2016 4:2016 5:17am Absolute Monocytes (auto) 1.3 T/MM3 H 0-0.8 09/06/2016 4:2016 5:17am Absolute Eosinophils (auto) 0.0 T/MM3 0-0.5 09/06/2016 4:2016 5:17am Absolute Basophils (auto) 0.0 T/MM3 0-0.2 09/06/2016 4:09/06/2016 5:17am Absolute Immature Granulocyte (auto 0.05 T/MM3 H 0.00-0.03 09/06/2016 4: 09/06/2016 5:17am Neutrophils % (Manual) 58.0 % 33-66 09/04/2016 6:42pm 09/04/2016 7: 03pm Band Neutrophils % 3.0 % 0-6 09/04/2016 6:42pm 09/04/2016 7:03pm Lymphocytes % (Manual) 26.0 % 23-45 09/04/2016 6:42pm 09/04/2016 7: 03pm Monocytes % (Manual) 12.0 % H 0-9.0 09/04/2016 6:42pm 09/04/2016 7:03pm Basophils % (Manual) 1.0 % 0-2 09/04/2016 6:42pm 09/04/2016 7:03pm Band Neutrophils # 0.2 T/MM3 09/04/2016 6:42pm 09/04/2016 7:03pm Absolute Neutrophils (Manual) 3.9 T/MM3 1.8-7.7 09/04/2016 6:42pm 09/04 7:03pm Lymphocytes # (Manual) 1.7 T/MM3 1-4.8 09/04/2016 6:42pm 09/04/2016 7: 03pm Monocytes # (Manual) 0.8 T/MM3 0-0.8 09/04/2016 6:42pm 09/04/2016 7: 03pm Basophils # (Manual) 0.1 T/MM3 0-0.2 09/04/2016 6:42pm 09/04/2016 7: 03pm Red Cell Morphology Comment ABNORMAL 09/04/2016 6:42pm 09/04/2016 7 :03pm Macrocytosis 1+ 09/04/2016 6:42pm 09/04/2016 7:03pm Prothromb Time International Ratio 1.08 H 0.76-1.04 09/04/2016 6:42pm 09/04/2016 6:51pm THERAPUTIC RANGE=2.00-3.00 FOR ANTI-THROMBOSIS THERAPUTIC RANGE=2.50-3.50 FOR IMPLANTED VALVE Icterus Index < 2 0-7 09/05/2016 4:24am 09/05/2016 5:38am Chemistry Specimen Hemolysis < 15 0-25 09/05/2016 4:24am 09/05/2016 5 :38am 0-25: Specimen Exhibited No Hemolysis. Turbidity < 20 0-20 09/05/2016 4:24am 09/05/2016 5:38am Sodium Level 141 MEQ/L 134-144 09/05/2016 4:24am 09/05/2016 5:38am Potassium Level 4.4 MEQ/L 3.6-5 09/05/2016 4:24am 09/05/2016 5:38am Chloride Level 105 MEQ/L 98-107 09/05/2016 4:24am 09/05/2016 5:38am Carbon Dioxide Level 28 MEQ/L 22-30 09/05/2016 4:24am 09/05/2016 5: 38am Anion Gap 8 MEQ/L 5-09/05/2016 4:24am 09/05/2016 5:38am Blood Urea Nitrogen 16.0 MG/DL 7-09/05/2016 4:2409/05/2016 5: 38am Creatinine 0.9 MG/DL D 0.7-1.2 09/05/2016 4:2409/05/2016 5:44am BUN/Creatinine Ratio 18 RATIO 6-09/05/2016 4:2409/05/2016 5:38am Glomerular Filtration Rate Calc 60 09/05/2016 4:2409/05/2016 5: 38am Glucose Level 136 MG/DL H 65-110 09/05/2016 4:2409/05/2016 5:38am Calculated Osmolality 274 MOSM/KG 261-280 09/05/2016 4:24am 09/05/2016 5:38am Calcium Level 9.6 MG/DL 8.4-10.2 09/05/2016 4:2409/05/2016 5:38am Total Bilirubin 0.40 MG/DL 0.20-1.30 09/04/2016 6:42pm 09/04/2016 6: 55pm Alkaline Phosphatase 54 U/L 38-126 09/04/2016 6:42pm 09/04/2016 6:55pm Total Protein 6.5 G/DL 6.3-8.2 09/04/2016 6:42pm 09/04/2016 6:55pm Albumin 3.8 G/DL 3.5-5.0 09/04/2016 6:42pm 09/04/2016 6:55pm Globulin 2.7 G/DL 2.4-3.6 09/04/2016 6:42pm 09/04/2016 6:55pm Albumin/Globulin Ratio 1.4 RATIO 1.1-2.2 09/04/2016 6:42pm 09/04/2016 6 :55pm Aspartate Amino Transf (AST/SGOT) 29 U/L 14-36 09/04/2016 6:42pm 2016 6:55pm Alanine Aminotransferase (ALT/SGPT) 31 U/L 9-52 09/04/2016 6:42pm 09/04 6:55pm Lipase 577 U/L H 23-300 09/04/2016 6:42pm 09/04/2016 6:55pm Microbiology Results Procedure Source Organism/Result Collection Date/Time Result Date/Time Result Status Blood Culture Peripheral/Iv Start NO GROWTH AFTER 5 DAYS 08/21/2016 6:30pm 08/26/2016 9:46pm Final Name: ALMA MEZA Unit #: [id number] : 1930 Sex: F Admit Date: 09/04/16 Loc / Svc: SRG Discharge Date: DIAGNOSTIC IMAGING REPORT Report #: [id number] [place], [place] Indication: ITS.REASON: worsening rectal bleeding with history of diverticulosis PROCEDURE: CT ABD/PELVIS W/CONTRAST ONLY: Encounter: Initial Comparison: August 21, 2016 Technique: Axial CT images were performed through the abdomen and pelvis after the administration of intravenous contrast. Coronal and sagittal two-dimensional reformats. Automated Exposure Control and Iterative Reconstruction dose reducing techniques were utilized. Contrast: Omnipaque 300 100 mL Findings: Mild scarring or fibrosis in the lung bases. The liver appears normal. Gallbladder is unremarkable. The spleen, pancreas and adrenal glands are within normal limits. Kidneys are unremarkable. Atherosclerotic plaque. Bladder is grossly normal. Uterus is within normal limits. No free fluid. Sigmoid diverticulosis without evidence of acute diverticulitis. No bowel obstruction. Bone windows show degenerative change and scoliosis in the spine. Impression: No acute disease process seen. There is a preliminary report by [facility]. . Procedures Procedure Status Date Provider(s) Colonoscopy with polypectomy and biopsy Completed 09/06/16 SHAQUILLE PARK MD Encounters Encounter Location Arrival/Admit Date Discharge/Depart Date Attending Provider Admitted Inpatient [facility] 09/05/16 9:31am CHEMA HARTMAN MD Discharged Inpatient [facility] 08/21/16 1:02pm 08/26/16 7:45pm CHEMA HARTMAN MD Recent Diagnosis Thrombocytopenia
--- NOTE | 2016-09-27 11:45 | NUR ---
ADMIT PT ADMITTED VIA WHEELCHAIR TO ROOM 147 AT THIS TIME. PT ALERT AND ORIENTED X3. PT DENIES CHEST PAIN, DENIES N/V, DENIES SOA. ACCOMPANIED BY DAUGHTER. WILL CONTINUE TO MONITOR.
[2016-09-27] MEDS ORDERED: TRAMADOL 50 MG TABLET PO PRN (13:00)
[2016-09-27] MEDS ORDERED: ACETAMINOPHEN 325 MG TABLET PO PRN (13:00)
[2016-09-27] MEDS ORDERED: HYDROCORTISONE 25 MG RECTAL SUPPOSITORY RECTALLY PRN (13:00)
[2016-09-27] MEDS ORDERED: LACT1CAP73 (13:00)
[2016-09-27] MEDS ORDERED: DOCU-168 PO (14:01)
--- NOTE | 2016-09-27 14:08 | HPPDOC ---
BEKA,LILLIANA [employer] 09/27/16 1254: HPI - Adult Date DATE: 09/27/16 TIME: 12:51 General Chief Complaint: Weakness, tired, fatigue History of Present Illness Alma Arvizu is an 86 y/o lady with a recent hx of hospitalizations on 08/21/16 and again on 09/05/16 for severe sepsis and abdominal pain and rectal bleeding secondary to hemorrhoids, respectively. Since having sepsis, she's felt weak and fatigued and has had a poor appetite. She followed up with Dr. Flynn on for ongoing symptoms of weakness and tachycardia/palpitations. She notes significant weakness, and could barely do anything yesterday. She has felt lightheaded, but hasn't passed out. She notes exertional dyspnea but denies chest pain, leg swelling, dyspnea at rest, or PND. She denies fevers or chills, sinus problems, or cough. She denies seeing any black or bloody stools. She denies abdominal pain but has had occasional nausea and a very poor appetite since she was hospitalized with sepsis. In fact, she's lost about 8 lbs unintentionally. She denies any urinary symptoms. In Dr. Flynn's office, she was found to be in atrial fibrillation with rapid ventricular response, and arrangements were made for direct admission to the hospital for observation status. Past Medical History Past Medical History Patient's Medical History: (1) Hypertension (2) Dyslipidemia (3) Osteoarthritis (4) History of breast cancer Onset Date: ~ 05/1992 (5) Overweight (BMI 25.0-29.9) Surgical History Patient's Surgical History: Bilateral mastectomy April 1993 Right knee arthroscopy 1988 Laser surgery to eyes. Bilateral total knee replacements. Appendectomy with a left salpingo-oophorectomy and umbilical hernia repair 05/2013. Colonoscopy 08/2003 Current Medications Home Meds Reported Medications Docusate Sodium (Colace) 100 Mg Capsule, 2 CAP PO DAILY Y for PRN ORDERS, CAP 09/27/16 Lactobacillus Combination No.4 (Probiotic) 1 Each Capsule, BID 09/27/16 Mv-Mn/FA/Vit K/Lycop/Lut/Zeaxa (Ocuvite Eye + Multi Tablet) 1 Each Tablet, 1 TAB PO DAILY 09/04/16 Glucosamine Sulfate 2Kcl (Glucosamine) 1,000 Mg Tablet, 2000 MG PO BID 09/04/16 Amlodipine Besylate (Amlodipine Besylate) 5 Mg Tablet, 5 MG PO BID 09/04/16 Hydrocortisone Acetate (Anusol-Hc) 25 Mg Supp.rect, RECTALLY BID Y for PRN ORDERS 08/21/16 Cholecalciferol (Vitamin D3) (Vitamin D-3) 2,000 Unit Capsule, 2000 UNIT PO DAILY 08/21/16 Tramadol HCl (Tramadol HCl) 50 Mg Tablet, 50 MG PO QID Y for PRN ORDERS 08/21/16 Losartan Potassium (Cozaar) 50 Mg Tablet, 25 MG PO BID 08/21/16 Metoprolol Tartrate (Metoprolol Tartrate) 25 Mg Tablet, 25 MG PO BIDWM 08/21/16 Multivit,Ther Iron,Ca,Fa & Min (Theragran-M Caplet) 1 Tab Tablet, 1 TAB PO DAILY 06/02/13 Acetaminophen (Tylenol) 325 Mg Tablet, 650 MG PO TID Y for PAIN 06/02/13 Omeprazole Magnesium (Omeprazole Magnesium) 20 Mg Capsule.dr, 20 MG PO ACB 06/02/13 Simvastatin (Zocor) 20 Mg Tablet, 20 MG PO HS 12/19/09 Ranitidine Hcl (Ranitidine Hcl) 75 Mg Tablet, 75 MG PO BID 12/19/09 Allergies: Coded Allergies: levofloxacin (Verified Allergy, Severe, HALLUCINATIONS, 09/27/16) prednisone (Verified Allergy, Unknown, 09/27/16) severe abdominal pain Family History Family History: Father at age 68 of heart problems. Mother at age 90, unknown cause of . Sister at age 60; cervical cancer and breast cancer Brother at age 80; Parkinson's disease. Another brother at age 59 of a cerebral aneurysm. A brother at age 75 of sudden , also has a history of EtOH abuse. Social History Does patient use chewing tobac: No Second Hand Exposure: No Substance Use Type: does not use Alcohol Intake: none Advance Directives: Yes DPOA for Healthcare Only (son-Tad daughter-Dori) Review of Systems Constitutional: REPORTS: fatigue, other (lightheadedness), weakness, weight loss, DENIES: chills, fever Eyes Vision: DENIES: vision changes ENMT Sinuses: NOT FOUND: congestion, rhinorrhea Mouth/Throat: DENIES: sore throat Cardiovascular dyspnea on exertion, DENIES: chest pain Rhythm/Rate: palpitations Vascular: DENIES: pedal edema Pulmonary Respiratory: DENIES: cough, dyspnea GI Upper Abdomen: nausea, DENIES: vomiting Lower Abdomen: DENIES: blood in stool, constipation, diarrhea, melena General: DENIES: dysuria, frequency Musculoskeletal General: DENIES: pain Integumentary Skin: DENIES: rash Neurological General: weakness, DENIES: headache, memory disturbances, seizures, syncope, tremor Psychiatric Psychiatric: DENIES: anxiety, depression, memory impairment Hematologic/Lymphatic DENIES: anemia Allergic/Immunological DENIES: frequent infections All Other Systems All Other Systems: Reviewed (remainder of 10-point ROS Neg.) Physical Exam General General Nourishment: well nourished, well developed Vital Signs Vital Signs Date Time Temp Pulse Resp B/P Pulse Ox O2 Delivery O2 Flow Rate FiO2 09/27/16 12:04 96.2 111 10 130/80 99 Room Air Height (Feet): 5 Height (Inches): 1.00 Eyes Brief: FOUND: PERRL, NOT FOUND: scleral icterus ENMT Brief: FOUND: mucosa moist, NOT FOUND: pharnyx erythema Neck Brief: NOT FOUND: adenopathy, nuchal rigidity Respiratory Auscultation: FOUND: normal, NOT FOUND: rales, rhonchi, wheezes Cardiovascular Auscultation: FOUND: S1, S2, irregular Peripheral Pulses: 2+: Dorasalis Pedis (L), Dorsalis Pedis (R), Posterior Tibial (L), Posterior Tibial (R), Radial (L), Radial (R) Edema: 0: Anasarca, Arm (L), Arm (R), Face, Leg (L), Leg (R) Abdomen Inspection: NOT FOUND: distention Palpation: FOUND: soft, NOT FOUND: involuntary guarding, rebound, tender, voluntary guarding Auscultation: FOUND: normo active Lymphatic (brief) Lymphatic Brief: NOT FOUND: adenopathy Integumentary (brief) Integumentary Brief: FOUND: dry, warm Integumentary General: FOUND: dry, warm Color: FOUND: pink Neurologic (brief) Neurological Brief: FOUND: cranial 2-12 intact (grossly), motor Neurologic GCS Eye Opening: (4)Spontaneous GCS Verbal: (5)Oriented GCS Motor: (6)Obeys Commands RN Documented GCS Total: 15 Psychiatric (brief) FOUND: alert, attentive, normal affect, oriented Assessment & Plan Problems: (1) Atrial fibrillation Status: Acute (2) Hypertension Status: Chronic (3) Dyslipidemia Status: Chronic (4) History of breast cancer Onset Date: ~ 05/1992 Status: Resolved Plan/Intensity of Service Admitted under observation status. Dr. Mayer is attending. New-onset A. fib with RVR: rate tends to stay below 140. Monitor on telemetry and obtain troponin, TSH, magnesium, BNP, CMP, and echocardiogram. We'll consult Dr. Alvarado. Consult PT and OT with her ongoing weakness. Check pre-albumin, vitamin B12, and folate because of macrocytic anemia. Hemoglobin in the office today was 11.9 , improved from 9.1 on 09/06/16. Resume home medication including ferrous sulfate as listed on Dr. Flynn's office note. She is not anticoagulated. Case discussed with Dr. Mayer. Will discuss additional orders with her and further recommendations are pending above results. CODE STATUS: Full code. DPOA is Dori, her daughter. Code Status Full Code Hospital Course Summary Disclaimer The hospital course summary below is not to be considered part of the above Progress Note. Hospital Course Summary 09/27/16 Admitted under observation status. Dr. Mayer is attending. New-onset A. fib with RVR: rate tends to stay below 140. Monitor on telemetry and obtain troponin, TSH, magnesium, BNP, CMP, and echocardiogram. We'll consult Dr. Alvarado. Consult PT and OT with her ongoing weakness. Check pre-albumin, vitamin B12, and folate because of macrocytic anemia. Hemoglobin in the office today was 11.9 , improved from 9.1 on 09/06/16. Resume home medication including ferrous sulfate as listed on Dr. Flynn's office note. She is not anticoagulated. Case discussed with Dr. Mayer. Will discuss additional orders with her and further recommendations are pending above results. CODE STATUS: Full code. DPJOHN is Dori, her daughter. MAYTE MAYER MD 09/27/16 2120: Past Medical History Current Medications Home Meds Reported Medications Docusate Sodium (Colace) 100 Mg Capsule, 2 CAP PO DAILY Y for PRN ORDERS, CAP 09/27/16 Lactobacillus Combination No.4 (Probiotic) 1 Each Capsule, BID 09/27/16 Mv-Mn/FA/Vit K/Lycop/Lut/Zeaxa (Ocuvite Eye + Multi Tablet) 1 Each Tablet, 1 TAB PO DAILY 09/04/16 Glucosamine Sulfate 2Kcl (Glucosamine) 1,000 Mg Tablet, 2000 MG PO BID 09/04/16 Amlodipine Besylate (Amlodipine Besylate) 5 Mg Tablet, 5 MG PO BID 09/04/16 Hydrocortisone Acetate (Anusol-Hc) 25 Mg Supp.rect, RECTALLY BID Y for PRN ORDERS 08/21/16 Cholecalciferol (Vitamin D3) (Vitamin D-3) 2,000 Unit Capsule, 2000 UNIT PO DAILY 08/21/16 Tramadol HCl (Tramadol HCl) 50 Mg Tablet, 50 MG PO QID Y for PRN ORDERS 08/21/16 Losartan Potassium (Cozaar) 50 Mg Tablet, 25 MG PO BID 08/21/16 Metoprolol Tartrate (Metoprolol Tartrate) 25 Mg Tablet, 25 MG PO BIDWM 08/21/16 Multivit,Ther Iron,Ca,Fa & Min (Theragran-M Caplet) 1 Tab Tablet, 1 TAB PO DAILY 06/02/13 Acetaminophen (Tylenol) 325 Mg Tablet, 650 MG PO TID Y for PAIN 06/02/13 Omeprazole Magnesium (Omeprazole Magnesium) 20 Mg Capsule.dr, 20 MG PO ACB 06/02/13 Simvastatin (Zocor) 20 Mg Tablet, 20 MG PO HS 12/19/09 Ranitidine Hcl (Ranitidine Hcl) 75 Mg Tablet, 75 MG PO BID 12/19/09 Allergies: Coded Allergies: levofloxacin (Verified Allergy, Severe, HALLUCINATIONS, 09/27/16) prednisone (Verified Allergy, Unknown, 09/27/16) severe abdominal pain Assessment & Plan Problems: (1) Atrial fibrillation Status: Acute (2) Hypertension Status: Chronic (3) Dyslipidemia Status: Chronic (4) History of breast cancer Onset Date: ~ 05/1992 Status: Resolved (5) Weakness Status: Chronic (6) History of lower GI bleeding Status: Resolved Assessment & Plan: Hospitalized in August 2016, colonoscopy 09/06 with moderate internal hemorrhoids and mild sigmoid diverticulosis. Bleeding attributed to hemorrhoids per patient history. (7) Macrocytic anemia Status: Acute Assessment Mrs. Arvizu is hospitalized with new onset atrial fibrillation, she describes generalized weakness for 6-8 weeks but no chest pain. She is aware of palpitations which have worsened recently. On examination the patient has an irregularly irregular rhythm with soft systolic murmur. Breath sounds are clear. Abdomen is benign and no peripheral edema is present. EKGs from August reviewed with Dr. Alvarado at which time she was clearly in sinus rhythm. Current EKG also reviewed by myself and Dr. Alvarado demonstrating atrial fibrillation with low-grade tachycardia and no acute ST/T-wave changes. Chest x- ray reviewed by myself-no evidence of failure. Metoprolol increased from 25 mg twice a day to 50 mg twice a day to improve rate control. Amlodipine dose decreased from twice a day to daily to minimize risk of hypotension. Anticoagulation discussed briefly and further discussed by Dr. Alvarado, Xarelto initiated. Continue telemetry. Monitor orthostatics. Monitor closely for any evidence of recurrent rectal bleeding. Recheck CBC in a.m. Minor hypercalcemia noted on admission, recheck a.m. PT evaluation in a.m. Plan/Intensity of Service Chest x-ray and EKGs reviewed, discussed with Dr. Alvarado, recent hospitalization reviewed, laboratory data reviewed. LILLIANA IRELAND APRN September 27, 2016 12:54 MAYTE MAYER MD September 27, 2016 21:20
--- NOTE | 2016-09-27 14:25 | DI ---
Indication: ITS.REASON: palpitations CHEST, PA LATERAL: Comparison: 08/25/2016 Technique: PA and lateral view Findings: Patient continues to show similar appearance with mild rotoscoliosis involving the spine. This does not seem to have changed. Heart, mediastinum and central vascularity are unremarkable. Lungs are clear. Impression: No acute cardiopulmonary findings with 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 .
[2016-09-27 14:37] LABS: ALBUMIN 4.2 G/DL (3.5-5.0); ALBUMIN/GLOBULIN RATIO 1.8 RATIO (1.1-2.2); ALKALINE PHOSPHATASE 56 U/L (38-126); ALT (SGPT) 43 U/L (9-52); ANION GAP 16 MEQ/L (5-15); AST (SGOT) 28 U/L (14-36); BUN/CREATININE RATIO 21 RATIO (6-26); CALCIUM 10.4 MG/DL (8.4-10.2); CHLORIDE 107 MEQ/L (98-107); CO2 - CARBON DIOXIDE 20 MEQ/L (22-30); CREATININE 0.9 MG/DL (0.7-1.2); GLOMERULAR FILTRATION RATE 60; GLUCOSE 126 MG/DL (65-110); POTASSIUM 4.8 MEQ/L (3.6-5); SODIUM 143 MEQ/L (134-144); TOTAL PROTEIN 6.5 G/DL (6.3-8.2)
[2016-09-27 14:45] LABS: PROBNP 5020 PG/ML (0-175)
[2016-09-27] MEDS ORDERED: RIVAROXABAN 15 MG TABLET PO SCH (17:30)
--- NOTE | 2016-09-27 18:11 | CONSPD ---
Consultation Info Date DATE: 09/27/16 TIME: 17:22 Reason for Consultation: afib HPI - Adult Date DATE: 09/27/16 TIME: 17:22 General Date of Admission Date of Admission: September 27, 2016 at 11:36 Chief Complaint: Weakness, tired, fatigue History of Present Illness 86 yo wf w/o prior known cariac disease , expect for chronic intermittent mild palpitations .she was hospitalized twice in August , with sepsis of uknown source 08/21 then rectal bleed with about 3 gm drop in Hgb on 09/05 .She underwent coloscopy showed internal hemmoroids and per daughter , a questionable inflammatory area treated with prednisone which susequently had to stopped due to severe abd pain . she was treated with Carfate and subsequently sx quickly improved . she did have nausea and threw up food once ,no hematemsis or coffee ground. no further hematichezia or melena. she has had chronic problems with intermittent bleed from hemmoroids , all mild until last month ,at that time was also taken off ASA. 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 she' s never had any TIA or CVA type sx. she just never fully recovered from her August illnesses. shes had decraesed appetite x 2 wks and thinks she s lost some wt. was seen last Friday by her PCP Dr Flynn ,c/o kind os blurred vision generalized fatigue and weakness. her BP was little low and was taken off her diuretic and her Losartan was cut in half. she felt better perhaps for one day then back to the same way as before. contintinued to feel woozy , worse when she s up and better after sitting down. she could barely do anything yesterday . she presented to PCP's office EKG showed new onset AF HR about 100 .[place] [facility] [place]. she s noted to go little tachy with activity up to 140's breifly ,otherwise mostly 100's to 110's. denies orthpnea PND or LE edema. she hasn't had any falls or near falls. she had her eye glasses checked few months ago and been keeping up with her Rx she says. no diplopia or trouble with speech. her trop was Neg. PBNP elevated over 5000 and CXR w/o pulm congestion. ekg w/o acute changes of ischemia echo showed mild valvular disease (/AI) NL LVfx and bordeline LA enlargemnt. Past Medical History Past Medical History Metabolic: cancer, hypercholesterolemia, hypertension Cardiac: DENIES: A-fib, CAD, CHF, IA, angina GI: constipation, other, DENIES: ulcers Female: DENIES: UTI Neurological: DENIES: CVA, TIA, head injury Hematologic: anemia Psychological: DENIES: alcohol abuse, dementia, depression, drug abuse Surgical History Cardiac: DENIES: cardiac bypass, cardiac cath, cardiac stent, carotid endarterectomy, pacemaker, valve replacement Current Medications Home Meds Reported Medications Docusate Sodium (Colace) 100 Mg Capsule, 2 CAP PO DAILY Y for PRN ORDERS, CAP 09/27/16 Lactobacillus Combination No.4 (Probiotic) 1 Each Capsule, BID 09/27/16 Mv-Mn/FA/Vit K/Lycop/Lut/Zeaxa (Ocuvite Eye + Multi Tablet) 1 Each Tablet, 1 TAB PO DAILY 09/04/16 Glucosamine Sulfate 2Kcl (Glucosamine) 1,000 Mg Tablet, 2000 MG PO BID 09/04/16 Amlodipine Besylate (Amlodipine Besylate) 5 Mg Tablet, 5 MG PO BID 09/04/16 Hydrocortisone Acetate (Anusol-Hc) 25 Mg Supp.rect, RECTALLY BID Y for PRN ORDERS 08/21/16 Cholecalciferol (Vitamin D3) (Vitamin D-3) 2,000 Unit Capsule, 2000 UNIT PO DAILY 08/21/16 Tramadol HCl (Tramadol HCl) 50 Mg Tablet, 50 MG PO QID Y for PRN ORDERS 08/21/16 Losartan Potassium (Cozaar) 50 Mg Tablet, 25 MG PO BID 08/21/16 Metoprolol Tartrate (Metoprolol Tartrate) 25 Mg Tablet, 25 MG PO BIDWM 08/21/16 Multivit,Ther Iron,Ca,Fa & Min (Theragran-M Caplet) 1 Tab Tablet, 1 TAB PO DAILY 06/02/13 Acetaminophen (Tylenol) 325 Mg Tablet, 650 MG PO TID Y for PAIN 06/02/13 Omeprazole Magnesium (Omeprazole Magnesium) 20 Mg Capsule.dr, 20 MG PO ACB 06/02/13 Simvastatin (Zocor) 20 Mg Tablet, 20 MG PO HS 12/19/09 Ranitidine Hcl (Ranitidine Hcl) 75 Mg Tablet, 75 MG PO BID 12/19/09 Allergies: Coded Allergies: levofloxacin (Verified Allergy, Severe, HALLUCINATIONS, 09/27/16) prednisone (Verified Allergy, Unknown, 09/27/16) severe abdominal pain Family History FOUND: CAD, alcohol abuse, other (cerebral aneurysm) Vaccines 02/2016 pt reports having both pneumonia vaccines [place] Social History Does patient use chewing tobac: No Second Hand Exposure: No Substance Use Type: does not use Alcohol Intake: none Advance Directives: Yes DPOA for Healthcare Only (son-Tda daughter-Dori) Review of Systems Constitutional: REPORTS: appetite decrease, dizziness, fatigue, weight loss, DENIES: chills, fever, syncope Eyes Vision: REPORTS: blurring, vision changes, DENIES: double vision ENMT Balance: DENIES: ataxia, falling to one side, vertigo Cardiovascular see HPI, DENIES: chest pain, dyspnea on exertion, murmur, orthopnea, paroxysmal nocturnal dysp Pulmonary Respiratory: DENIES: cough, dyspnea, pleuritic chest pain, sputum GI Upper Abdomen: nausea, see HPI, vomiting (once ) General: DENIES: dysuria, hematuria Musculoskeletal General: DENIES: cramps Neurological General: DENIES: aphasia, blackouts, blindness, change in strength, dysarthria , dysesthesia, fainting, memory disturbances, numbness, paralysis/paresis, seizures, syncope, tremor, vertigo, weakness Psychiatric Psychiatric: DENIES: depression, nervousness Endocrine DENIES: heat/cold intolerance Hematologic/Lymphatic anemia Allergic/Immunological DENIES: hives Physical Exam General General Nourishment: well nourished, well developed, obese, apparent age, adult General Body Habitus: well groomed Vital Signs Vital Signs Date Time Temp Pulse Resp B/P Pulse Ox O2 Delivery O2 Flow Rate FiO2 09/27/16 15:42 97.5 113 12 144/54 96 Room Air Height (Feet): 5 Height (Inches): 1.00 Telemetry Rhythm: Atrial Fibrillation Eyes Brief: FOUND: EOMI, PERRL, NOT FOUND: foreign body, trauma ENMT Brief: FOUND: mucosa moist Neck Brief: NOT FOUND: JVD, adenopathy, carotid bruits, thyromegaly Respiratory Brief: FOUND: clear all king, equal bilaterally, NOT FOUND: rales , wheezes Cardiovascular (brief) Cardiac Brief: FOUND: murmur (2/6 m ,preserved A2 no AI m.), regular rate, NOT FOUND: pedal edema, regular rhythm Cardiovascular Auscultation: FOUND: S1, S2, irregular Murmur: FOUND: systolic (2/6 ) Peripheral Pulses: 3+: Carotid (L), Carotid (R), Dorasalis Pedis (L), Dorsalis Pedis (R), Posterior Tibial (L), Posterior Tibial (R) Edema: 0: Anasarca, Arm (L), Arm (R), Face, Leg (L), Leg (R) Abdomen (brief) Abdominal Brief: FOUND: BS normo active x4, soft, NOT FOUND: distended, tender (brief) Female Brief: NOT FOUND: bleeding Lymphatic (brief) Lymphatic Brief: NOT FOUND: adenopathy, lymphedema Musculoskeletal (brief) Musculoskeletal Brief: NOT FOUND: deformity Integumentary (brief) Integumentary Brief: FOUND: dry, pink, warm, NOT FOUND: rash Neurologic (brief) Neurological Brief: FOUND: cranial 2-12 intact, motor, sensory, NOT FOUND: facial droop, ptosis Neurologic RN Documented GCS Eye Opening: (4)Spontaneous Verbal: (5)Oriented Motor: (6)Obeys Commands Total: Psychiatric (brief) FOUND: alert, attentive, normal affect, oriented Psychiatric Psychiatric General: FOUND: judgment, mood, NOT FOUND: flight of ideas, pressured speech Attitude: FOUND: cooperative Laboratory Laboratory Tests Test 09/27/16 13:43 Turbidity < 20 Sodium Level 143MEQ/L Potassium Level 4.8MEQ/L Chloride Level 107MEQ/L Carbon Dioxide Level 20MEQ/L Anion Gap 16MEQ/L Blood Urea Nitrogen 19.0MG/DL Creatinine 0.9MG/DL Glomerular Filtration Rate Calc 60 BUN/Creatinine Ratio 21RATIO Glucose Level 126MG/DL Calculated Osmolality 279MOSM/KG Calcium Level 10.4MG/DL Magnesium Level 2.0MG/DL Total Bilirubin 0.60MG/DL Icterus Index < 2 Aspartate Amino Transf (AST/SGOT) 28U/L Alanine Aminotransferase (ALT/SGPT) 43U/L Alkaline Phosphatase 56U/L Troponin I < 0.012ng/ml [id number]-Jex-P-Type Natriuretic Peptide 5020PG/ML Total Protein 6.5G/DL Albumin 4.2G/DL Globulin 2.3G/DL Albumin/Globulin Ratio 1.8RATIO Prealbumin 26.7MG/DL Thyroid Stimulating Hormone (TSH) 1.41MIU/L Chemistry Specimen Hemolysis 35 WBC 7 hgb 11.9 PLT 164 colonscopy and recent office records and [facility] records noted and revioewed. also EKG 's august NSR . EKG see HPI Radiology see HPI Impression/Recommendation Impression AFIB mild RVR dizziness related to new onset AF vs. releative hypotension associated with meds and decraesed PO intake HTN DLDO h/o rectal bleed 09/05 elevated PBNP w/o clinical or XR evidence of CHF mild valvular heart disease 1.lenghty dw pt and daughter about risks and benefits of sysetmic anticoagulation . they understood incraesed risk for BOTH , bleed on anticoagulation due to age ,recent bleed AND CVA if we dont anticoaglate , given her CHADS2 vasc score ,driven by age ,gender and HTN. they agree and are in favor of anticoagulation 2. lengthy discussion with pt and Dr Tan regardng choice of anticogulation Rx , a simple Rx is Xarelto and making sure she remains off ASA ,consider acid suppressive Rx if dyspepsia . 3.discussed the optiion of DC CV , vs inital attmpt at rate control startegy. she wants to hold OFF cv FOR NOW AND SIMPLY SEE how she feels .if she remains weak and lightheaded may have to revisit this decsion. 4.agree w lowering amlodipine dose and as dw you incraesing BB for better rate control. 5. daily orthstats and would Rx only standing SBP above 160 , due to her age and standing lightheadedness. 6. obvioulsy watch for signs of bleed. 7 please call me PRN cardiac concerns. I'll follow pt PRN /intermittently . thank you ! time taken to do consult and counsleing and complex decision making . dw pt and family ,dw providers [employer]/ and RN an dreviewe outpt , hospital records , rveiew of reelavnt data and echo and documentation was in eccess of 90 min EMBER ROD MD September 27, 2016 17:40
[2016-09-27] MEDS: FERROUS SULFATE 324 MG TABLET PO SCH (18:19)
--- NOTE | 2016-09-27 18:43 | NUR ---
SHIFT SUMMARY PT ALERT AND ORIENTED X3. PT ON RA, DENIES SOA. REPORTS CHRONIC BACK PAIN AT THIS TIME, DENIES CHEST PAIN. PT REPORTS SLIGHT NAUSEA, DECREASED APPETITE AT DINNER. IVL LEFT UPPER ARM. ADEQUATE URINE OUTPUT. PT ABLE TO MAKE NEEDS KNOWN, DAUGHTER AT BEDSIDE. BED ALARM ON, CALL LIGHT WITHIN REACH.
--- NOTE | 2016-09-27 18:45 | NUR ---
ACTIVITY UP WITH ASSIST X1, GAIT BELT, WALKER. PT REPORTS LIGHTHEADEDNESS WITH AMBULATION. WILL CONTINUE TO MONITOR.
[2016-09-27] MEDS: ONDANSETRON 4mg/2ml INJECTION IV PRN (19:33)
[2016-09-27] MEDS: RANITIDINE 150 MG TABLET PO SCH (20:33)
[2016-09-27] MEDS: LOSARTAN 50 MG TABLET PO SCH (20:33)
[2016-09-27] MEDS ORDERED: AMLODIPINE 5 MG TABLET PO SCH (21:00)
[2016-09-27] MEDS ORDERED: SIMVASTATIN 20 MG TABLET PO SCH (22:00)
--- NOTE | 2016-09-27 22:00 | NUR ---
URINE OUTPUT: PT AND DAUGHTER STATES THAT PT VOIDED IN BATHROOM TWICE BEFORE MY SHIFT (ONCE BEFORE SUPPER AND ONCE AFTER SUPPER); THESE VOIDS WERE NOT CHARTED FROM PREVIOUS SHIFT.
[2016-09-28] VITALS: BP 126/60; PULSE 96; RESP 20; TEMP 97.5; O2SAT 97
[2016-09-28 04:05] VITALS: BP 122/75; PULSE 68; RESP 18; TEMP 97.5; O2SAT 97
--- NOTE | 2016-09-28 04:28 | NUR ---
SHIFT SUMMARY: PT IS A&OX3, FRIENDLY AND COOPERATIVE, PT'S FAMILY WAS IN HER ROOM AT THE BEGINNING OF MY SHIFT, THEN LATER LEFT BY 21:00, ON TELEMETRY, BGM'S, IV LOCKED, Q4 VITALS AND ORTHOSTATIC VITALS, UP WITH ONE, GATE BELT, AND WALKER. PT REQUESTED PAIN MEDICATION EARLY IN MY SHIFT (SEE EMAR). CALL LIGHT WITHIN REACH, BED ALARM ON.
[2016-09-28 04:37] LABS: BASOPHILS % (AUTO) 0.2 % (0-2); EOSINOPHILS % (AUTO) 0.7 % (0-4); HCT - HEMATOCRIT 31.4 % (36-46); HGB - HEMOGLOBIN 10.3 GM/DL (12-16); IMMATURE GRANULOCYTE # (AUTO) 0.04 T/MM3 (0.00-0.03); IMMATURE GRANULOCYTE % (AUTO) 0.7 % (0.0-0.5); LYMPHOCYTES # (AUTO) 2.3 T/MM3 (1-4.8); LYMPHOCYTES % (AUTO) 37.6 % (23-45); MEAN CORPUSCULAR HGB 33.8 UUG (26-34); MEAN CORPUSCULAR HGB CONC(MCHC 32.8 GM/DL (31-37); MEAN PLATELET VOLUME 11.2 UM3 (9.4-12.4); MONOCYTES # (AUTO) 1.5 T/MM3 (0-0.8); MONOCYTES % (AUTO) 23.9 % (0-9.0); NEUTROPHILS #(AUTO)-ABSOLUTE 2.3 T/MM3 (1.8-7.7); NEUTROPHILS % (AUTO) 36.9 % (33-66); RED BLOOD COUNT 3.05 M/MM3 (4.00-5.20); WBC - WHITE BLOOD COUNT 6.1 T/MM3 (4.5-11.0)
[2016-09-28 04:42] LABS: ANION GAP 11 MEQ/L (5-15); BUN/CREATININE RATIO 22 RATIO (6-26); CALCIUM 9.6 MG/DL (8.4-10.2); CHLORIDE 105 MEQ/L (98-107); CO2 - CARBON DIOXIDE 25 MEQ/L (22-30); GLOMERULAR FILTRATION RATE 53; GLUCOSE 115 MG/DL (65-110); POTASSIUM 4.7 MEQ/L (3.6-5); SODIUM 141 MEQ/L (134-144)
[2016-09-28] MEDS ORDERED: OMEPRAZOLE 20 MG CAPSULE PO SCH (06:30)
[2016-09-28 07:37] VITALS: BP 102/57; PULSE 86; RESP 16; TEMP 95.6; O2SAT 99
[2016-09-28] MEDS: ONDANSETRON 4mg/2ml INJECTION IV PRN (07:45)
[2016-09-28] MEDS: FERROUS SULFATE 324 MG TABLET PO SCH (08:24)
[2016-09-28] MEDS: RANITIDINE 150 MG TABLET PO SCH (08:24)
[2016-09-28] MEDS: LOSARTAN 50 MG TABLET PO SCH (08:25)
[2016-09-28 09:00] VITALS: BP_SYST 101; BP_SYST 102; BP_SYST 113; BP_DIAS 53; BP_DIAS 57; PULSE 72
[2016-09-28] MEDS ORDERED: MULTIVIT + MINERALS (OPTI-GEN) PO SCH (09:00)
[2016-09-28] MEDS ORDERED: TRIAMTERENE/HCTZ 37.5mg/25mg TABLET PO SCH (09:00)
[2016-09-28] MEDS ORDERED: ASPIRIN 81 MG CHEWABLE TABLET PO SCH (09:00)
[2016-09-28] MEDS ORDERED: AMLODIPINE 5 MG TABLET PO SCH (09:00)
[2016-09-28] MEDS ORDERED: METO25TA6 PO (09:27)
[2016-09-28] MEDS ORDERED: AMLO5TAB2 PO (09:27)
[2016-09-28] MEDS ORDERED: FERR324T4 PO (09:27)
[2016-09-28] MEDS ORDERED: LOSA50TA2 PO (09:27)
[2016-09-28] MEDS ORDERED: RIVA15TA PO (09:27)
--- NOTE | 2016-09-28 09:30 | NUR ---
scripts New Rx scripts faxed to pt Rx r/t they close at 1300. pt notified they will be ready for her.
--- NOTE | 2016-09-28 09:50 | PNPDOC ---
LILLIANA IRELAND SENIOR DB2 SYSTEMS PROGRAMMER 09/28/16 0945: Subjective Date DATE: 09/28/16 TIME: 09:41 Subjective Alma had a poor night. She hardly slept at all - she guesses she was able to sleep for about an hour. She isn't feeling completely recovered yet but was able to walk to and from the bathroom without feeling too weak. She hasn't noticed palpitations today. No SOA. She notes mild nausea but it is improving. She doesn't want to take iron b/c she is afraid of being constipated and straining with bowels - especially in light of recent GI bleed and now on Xarelto. She relayed to me that Dr. Flynn told her she can hold off on iron for now. Objective Vital Signs Vital signs Vital Signs Date Time Temp Pulse Resp B/P Pulse Ox O2 Delivery O2 Flow Rate FiO2 09/28/16 07:37 95.6 86 16 102/57 99 Room Air Telemetry Rhythm: Atrial Fibrillation Height (Feet): 5 Height (Inches): 1.00 Weight (Kilograms): 71.000 General General Appearance: Alert, Orientated x 3, Well Nourished, Well Developed, No Acute Distress Eyes (Brief) Eyes: FOUND: PERRL, NOT FOUND: scleral icterus ENMT (Brief) ENMT: FOUND: mucosa moist, NOT FOUND: pharnyx erythema Respiratory (Brief) Respiratory: FOUND: clear all king, equal bilaterally Cardiovascular (Brief) Cardiac: FOUND: other (irreg. irreg with rate just over 100) Abdomen (Brief) Abdominal: FOUND: BS normo active x4, soft, NOT FOUND: distended, tender Extremities (Brief) Extremity : Side: Bilateral Extremity Finding: NOT FOUND: edema Musculoskeletal (Brief) Musculoskeletal: NOT FOUND: tenderness (calves soft nttp) Integumentary (Brief) Integumentary: FOUND: dry, pink, warm Psychiatric (Brief) Psychiatric: FOUND: alert, attentive, normal affect, oriented Laboratory Laboratory Laboratory Tests 09/27/16 13:43 09/28/16 04:00 Laboratory Tests 09/28/16 04:00 Assessment & Plan Problems: (1) Atrial fibrillation Status: Acute (2) Hypertension Status: Chronic (3) Dyslipidemia Status: Chronic (4) History of breast cancer Onset Date: ~ 05/1992 Status: Resolved (5) Weakness Status: Chronic (6) History of lower GI bleeding Status: Resolved Assessment & Plan: Hospitalized in August 2016, colonoscopy 09/06 with moderate internal hemorrhoids and mild sigmoid diverticulosis. Bleeding attributed to hemorrhoids per patient history. (7) Macrocytic anemia Status: Acute Plan/Intensity of Service BP is borderline low this am; HR under better control and typically 100-120 per telemetry - discussed med changes with Dr. Mayer and patient, includin. Metoprolol was increased from 25 mg BID to 50 mg BID for rate control. 2. Cozaar will be decreased from 50 mg BID to 25 mg daily. 3. Amlodipine will be stopped for now to minimize risk for hypotension. 4. Xarelto 15 mg daily is appropriate dose based on CrCl. In addition, pt requests on holding off on iron supplementation for now - she will revisit with Dr. Flynn. Folate, prealbumin, and iron studies are pending. Rx and medication lists were sent to the [facility], where the pharmacist does transitional care. She has a coupon for Xarelto. Evaluated by PT this am - recommend FWW and skilled IP PT to help her return to [facility]. DVT Prophylaxis: Xarelto Code Status Full Code Hospital Course Summary Disclaimer The hospital course summary below is not to be considered part of the above Progress Note. Hospital Course Summary 09/27/16 Admitted under observation status. Dr. Mayer is attending. New-onset A. fib with RVR: rate tends to stay below 140. Monitor on telemetry and obtain troponin, TSH, magnesium, BNP, CMP, and echocardiogram. We'll consult Dr. Alvarado. Consult PT and OT with her ongoing weakness. Check pre-albumin, vitamin B12, and folate because of macrocytic anemia. Hemoglobin in the office today was 11.9 , improved from 9.1 on 09/06/16. Resume home medication including ferrous sulfate as listed on Dr. Flynn's office note. She is not anticoagulated. Case discussed with Dr. Mayer. Will discuss additional orders with her and further recommendations are pending above results. CODE STATUS: Full code. DPOA is Dori, her daughter. Mrs. Arvizu is hospitalized with new onset atrial fibrillation, she describes generalized weakness for 6-8 weeks but no chest pain. She is aware of palpitations which have worsened recently. On examination the patient has an irregularly irregular rhythm with soft systolic murmur. Breath sounds are clear. Abdomen is benign and no peripheral edema is present. EKGs from August reviewed with Dr. Alvarado at which time she was clearly in sinus rhythm. Current EKG also reviewed by myself and Dr. Alvarado demonstrating atrial fibrillation with low-grade tachycardia and no acute ST/T-wave changes. Chest x- ray reviewed by myself-no evidence of failure. Metoprolol increased from 25 mg twice a day to 50 mg twice a day to improve rate control. Amlodipine dose decreased from twice a day to daily to minimize risk of hypotension. Anticoagulation discussed briefly and further discussed by Dr. Alvarado, Xarelto initiated. Continue telemetry. Monitor orthostatics. Monitor closely for any evidence of recurrent rectal bleeding. Recheck CBC in a.m. Minor hypercalcemia noted on admission, recheck a.m. PT evaluation in a.m. 09/28/16 BP is borderline low this am; HR under better control and typically 100-120 per telemetry - discussed med changes with Dr. Mayer and patient, includin. Metoprolol was increased from 25 mg BID to 50 mg BID for rate control. 2. Cozaar will be decreased from 50 mg BID to 25 mg daily. 3. Amlodipine will be stopped for now to minimize risk for hypotension. 4. Xarelto 15 mg daily is appropriate dose based on CrCl. In addition, pt requests on holding off on iron supplementation for now - she will revisit with Dr. Flynn. Folate, prealbumin, and iron studies are pending. Rx and medication lists were sent to the [facility], where the pharmacist does transitional care. She has a coupon for Xarelto. Evaluated by PT this am - recommend FWW and skilled IP PT to help her return to [facility]. MAYTE MAYER MD 09/28/16 1615: Assessment & Plan Assessment I have independently evaluated and examined this patient. I reviewed the chart, the patient's history, and the SENIOR DB2 SYSTEMS PROGRAMMER's documented findings as above. We discussed and formulated the assessment and plan as above with additions as below: See discharge summary from my comments. Oral Zofran added to discharge medications due to minor nausea patient has experienced intermittently for several weeks. LILLIANA IRELAND SENIOR DB2 SYSTEMS PROGRAMMER September 28, 2016 09:45 MAYTE MAYER MD September 28, 2016 16:15
--- NOTE | 2016-09-28 10:29 | NUR ---
CM BENE SCORE IS 3. Addendum: 09/28/16 at 1030 by NISA CARTWRIGHT SW Amended: Links added.
--- NOTE | 2016-09-28 10:31 | NUR ---
CM SPOKE WITH PT, INTRODUCED SELF, EXPLAINED ROLE, PROVIDED CONTACT INFO. PT STATED SHE LIVES IN [place] WITH SPOUSE AND DAUGHTER, AND HER DC PLAN IS TO RETURN HOME. SHE SAID HER FAMILY WILL PICK HER UP WHEN SHE IS RELEASED. SHE DENIED HAVING ANY DC QUESTIONS/NEEDS WHEN THIS WORKER ASKED. REVIEWED PHYS THERAPY'S RECOMMENDATION OF FWW. SHE SAID SHE HAS A CANE AT HOME, AND HER IS USING HER WALKER (THAT SHE GOT A WHILE AGO). SHE SAID HER DAUGHTER WILL BE GETTING HER A WALKER. THIS WORKER OFFERED TO ARRANGE A WALKER FOR DELIVERY, BUT SHE STATED SHE DOES NOT NEED THIS. SHE SAID HER DAUGHTER WILL PROVIDE ONE. THIS WORKER PROVIDED HER WITH [employer] INFORMATION, IN CASE SHE DOES NEED A LOANER. SPOKE WITH LILLIANA Serrano RE: NEW PRESCRIPTION FOR XARELTO. CONFIRMED WITH PHARMACY IN [place] (WHICH PT SAID SHE USES) THAT THEY HAVE COUPONS FOR 30 DAYS FREE THAT THEY WILL PROVIDE PT. Addendum: 09/28/16 at 1034 by NISA MCCONNELL Amended: Links added.
[2016-09-28] MEDS ORDERED: ONDA-55 PO (10:33)
--- NOTE | 2016-09-28 11:22 | DSPDOC ---
LILLIANA IRELAND Mallorie TESTING DIRECTOR 09/28/16 1110: General Date Date DATE: 09/28/16 TIME: 11:05 Attending Physician Lou Mayer MD Admitting Physician Lou Mayer MD Consulting Physician Ember Alvarado MD Admitting Diagnosis new onset afib Discharge Diagnosis same Procedures ECHOCARDIOGRAM pending Laboratory Laboratory Tests Test 09/27/16 13:43 09/28/16 04:00 Turbidity < 20 (0-20) < 20 (0-20) Sodium Level 143MEQ/L (134-144) 141MEQ/L (134-144) Potassium Level 4.8MEQ/L (3.6-5) 4.7MEQ/L (3.6-5) Chloride Level 107MEQ/L (98-107) 105MEQ/L (98-107) Carbon Dioxide Level 20MEQ/L (22-30) 25MEQ/L (22-30) Anion Gap 16MEQ/L (5-15) 11MEQ/L (5-15) Blood Urea Nitrogen 19.0MG/DL (7-17) 22.0MG/DL (7-17) Creatinine 0.9MG/DL (0.7-1.2) 1.0MG/DL (0.7-1.2) Glomerular Filtration Rate Calc 60 53 BUN/Creatinine Ratio 21RATIO (6-26) 22RATIO (6-26) Glucose Level 126MG/DL (65-110) 115MG/DL (65-110) Calculated Osmolality 279MOSM/KG (261-280) 275MOSM/KG (261-280) Calcium Level 10.4MG/DL (8.4-10.2) 9.6MG/DL (8.4-10.2) Magnesium Level 2.0MG/DL (1.6-2.3) Total Bilirubin 0.60MG/DL (0.20-1.30) Icterus Index < 2 (0-7) < 2 (0-7) Aspartate Amino Transf (AST/SGOT) 28U/L (14-36) Alanine Aminotransferase (ALT/SGPT) 43U/L (9-52) Alkaline Phosphatase 56U/L (38-126) Troponin I < 0.012ng/ml (0-0.12) NO-Hie-O-Type Natriuretic Peptide 5020PG/ML (0-175) Total Protein 6.5G/DL (6.3-8.2) Albumin 4.2G/DL (3.5-5.0) Globulin 2.3G/DL (2.4-3.6) Albumin/Globulin Ratio 1.8RATIO (1.1-2.2) Prealbumin 26.7MG/DL (17.6-36.0) Thyroid Stimulating Hormone (TSH) 1.41MIU/L (0.47-4.68) Chemistry Specimen Hemolysis 35 (0-25) < 15 (0-25) White Blood Count 6.1T/MM3 (4.5-11.0) Red Blood Count 3.05M/MM3 (4.00-5.20) Hemoglobin 10.3GM/DL (12-16) Hematocrit 31.4% (36-46) Mean Corpuscular Volume 103.0UM3 (80-100) Mean Corpuscular Hemoglobin 33.8UUG (26-34) Mean Corpuscular Hemoglobin Concent 32.8GM/DL (31-37) RDW Standard Deviation 50.0FL (36.9-50.2) Platelet Count 154T/MM3 (130-400) Mean Platelet Volume 11.2UM3 (9.4-12.4) Immature Granulocyte % (Auto) 0.7% (0.0-0.5) Neutrophils (%) (Auto) 36.9% (33-66) Lymphocytes (%) (Auto) 37.6% (23-45) Monocytes (%) (Auto) 23.9% (0-9.0) Eosinophils (%) (Auto) 0.7% (0-4) Basophils (%) (Auto) 0.2% (0-2) Absolute Immature Granulocyte (auto 0.04T/MM3 (0.00-0.03) Absolute Neutrophils (auto) 2.3T/MM3 (1.8-7.7) Absolute Lymphocytes (auto) 2.3T/MM3 (1-4.8) Absolute Monocytes (auto) 1.5T/MM3 (0-0.8) Absolute Eosinophils (auto) 0.0T/MM3 (0-0.5) Absolute Basophils (auto) 0.0T/MM3 (0-0.2) Radiology CHEST, PA & LATERAL No acute cardiopulmonary findings with 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 History of Present Illness Alma Arvizu is an 86 y/o lady with a recent hx of hospitalizations on 08/21/16 and again on 09/05/16 for severe sepsis and abdominal pain and rectal bleeding secondary to hemorrhoids, respectively. Since having sepsis, she's felt weak and fatigued and has had a poor appetite. She followed up with Dr. Flynn on for ongoing symptoms of weakness and tachycardia/palpitations. She notes significant weakness, and could barely do anything yesterday. She has felt lightheaded, but hasn't passed out. She notes exertional dyspnea but denies chest pain, leg swelling, dyspnea at rest, or PND. She denies fevers or chills, sinus problems, or cough. She denies seeing any black or bloody stools. She denies abdominal pain but has had occasional nausea and a very poor appetite since she was hospitalized with sepsis. In fact, she's lost about 8 lbs unintentionally. She denies any urinary symptoms. In Dr. Flynn's office, she was found to be in atrial fibrillation with rapid ventricular response, and arrangements were made for direct admission to the hospital for observation status. Hospital Course Mrs. Arvizu was admitted under observation status for new onset atrial fibrillation. EKGs in August 2016 clearly showed normal sinus rhythm. Dr. Alvarado was consulted, and reviewed the risks, benefits of anticoagulation. They decided to start Xarelto. Metoprolol was increased to 50 mg twice a day for rate control. Amlodipine dose was initially decreased to once a day, but at time of discharge was discontinued entirely to minimize her risk of hypotension. Her diuretic was also discontinued. An echocardiogram was obtained , but report was pending at time of discharge. Labs were assessed, showing macrocytic anemia, and folate, vitamin B12 and iron studies were ordered - these labs were pending at time of discharge. Troponin was negative, BNP was 5020. Her heart rate improved with the corresponding increased dose and her beta gavi. Blood pressure was borderline low. On 09/28/16, and further adjustments in her antihypertensives was made. Here is a summary for medication changes: 1. Metoprolol was increased from 25 mg BID to 50 mg BID for rate control. 2. Cozaar will be decreased from 50 mg BID to 25 mg daily. 3. Amlodipine will be stopped for now to minimize risk for hypotension. 4. Xarelto 15 mg daily is appropriate dose based on CrCl. 5. Maxzide has been discontinued. In addition, pt requests on holding off on iron supplementation for now - she will revisit with Dr. Flynn. She was also evaluated by PT, who recommended use of a FWW. The patient's daughter, Dori, states she will be able to get Alma a walker. The patient was discharged home in stable condition with her daughter. She should follow-up with Dr. Flynn next week, and should also call Dr. Alvarado for a hospital follow-up appointment. She should monitor stools for any evidence of bleeding. Continue with stool softener. This is a general summation of the patient's hospital course. For more details, please refer to the complete medical record. Problems: (1) Atrial fibrillation Status: Acute (2) Macrocytic anemia Status: Acute (3) Weakness Status: Chronic (4) History of lower GI bleeding Status: Resolved Assessment & Plan: Hospitalized in August 2016, colonoscopy 09/06 with moderate internal hemorrhoids and mild sigmoid diverticulosis. Bleeding attributed to hemorrhoids per patient history. (5) Hypertension Status: Chronic (6) Dyslipidemia Status: Chronic (7) History of breast cancer Onset Date: ~ 05/1992 Status: Resolved Code Status Full Code Home Meds Active Scripts Ondansetron HCl (Ondansetron HCl) 4 Mg Tablet, 4 MG PO Q6HR Y for NAUSEA, #30 TAB Prov:LOU MAYER MD 09/28/16 Rivaroxaban (Xarelto) 15 Mg Tablet, 15 MG PO WS for 30 Days, #30 TAB Prov:LILLIANA IRELAND TESTING DIRECTOR 09/28/16 Metoprolol Tartrate (Metoprolol Tartrate) 25 Mg Tablet, 50 MG PO BIDWM for 30 Days, #120 TAB Prov:LILLIANA IRELAND TESTING DIRECTOR 09/28/16 Losartan Potassium (Cozaar) 50 Mg Tablet, 25 MG PO DAILY for 30 Days Prov:LILLIANA IRELAND TESTING DIRECTOR 09/28/16 Reported Medications Docusate Sodium (Colace) 100 Mg Capsule, 2 CAP PO DAILY Y for PRN ORDERS, CAP 09/27/16 Lactobacillus Combination No.4 (Probiotic) 1 Each Capsule, BID 09/27/16 Mv-Mn/FA/Vit K/Lycop/Lut/Zeaxa (Ocuvite Eye + Multi Tablet) 1 Each Tablet, 1 TAB PO DAILY 09/04/16 Glucosamine Sulfate 2Kcl (Glucosamine) 1,000 Mg Tablet, 2000 MG PO BID 09/04/16 Hydrocortisone Acetate (Anusol-Hc) 25 Mg Supp.rect, RECTALLY BID Y for PRN ORDERS 08/21/16 Cholecalciferol (Vitamin D3) (Vitamin D-3) 2,000 Unit Capsule, 2000 UNIT PO DAILY 08/21/16 Tramadol HCl (Tramadol HCl) 50 Mg Tablet, 50 MG PO QID Y for PRN ORDERS 08/21/16 Multivit,Ther Iron,Ca,Fa & Min (Theragran-M Caplet) 1 Tab Tablet, 1 TAB PO DAILY 06/02/13 Acetaminophen (Tylenol) 325 Mg Tablet, 650 MG PO TID Y for PAIN 06/02/13 Omeprazole Magnesium (Omeprazole Magnesium) 20 Mg Capsule.dr, 20 MG PO ACB 06/02/13 Simvastatin (Zocor) 20 Mg Tablet, 20 MG PO HS 12/19/09 Ranitidine Hcl (Ranitidine Hcl) 75 Mg Tablet, 75 MG PO BID 12/19/09 Discontinued Reported Medications Amlodipine Besylate (Amlodipine Besylate) 5 Mg Tablet, 5 MG PO BID 09/04/16 Metoprolol Tartrate (Metoprolol Tartrate) 25 Mg Tablet, 25 MG PO BIDWM 08/21/16 Face to Face Encounter I met with patient on the day of dismissal and discussed follow up appointments , medications, and safety plan. Discharge Disposition Discharged home, stable Copies To 1: EMBER ALVARADO MD; EMILY FLYNN MD Documentation Requirements Documenting Diagnosis Anemia, Pneumonia Anemia Anemia Etiology: Unable to Determine BMI Low or High Assoc. dx for low or high BMI: Overweight 25-29.9 LOU MAYER MD 09/28/16 1436: Hospital Course I have independently evaluated and examined this patient. I reviewed the chart, the patient's history, and the TESTING DIRECTOR's documented findings as above. We discussed and formulated the assessment and plan as above with additions as below: Mrs. Arvizu reports minor back pain today but denies lightheadedness or visual blurring today. She doesn't feel as woozy when she walks. Heart rate has typically been under 100 other than very transient bump to 130 once this morning. Telemetry continues to reveal atrial fibrillation. Patient reports some minor nausea often occurring prior to meals which has been a source of concern for her daughter due to decreased oral intake. Patient thinks this may correlate with iron use but is uncertain. Cardiac rhythm is irregular with normal S1 and S2. Abdomen is soft and nontender. Stable for discharge. Discussed switching iron supplement use to one daily and taking at bedtime to minimize nausea around meals. Discharge with prescription for Zofran 4 mg prn nausea. Final echo report pending however preliminary report per Dr. Alvarado demonstrated mild valvular disease (AST/AI), normal LV function, and borderline left atrial enlargement. Patient aware that should she experience any recurrent rectal bleeding Xarelto should be held and her physician notified immediately. Problems: Home Meds Active Scripts Ondansetron HCl (Ondansetron HCl) 4 Mg Tablet, 4 MG PO Q6HR Y for NAUSEA, #30 TAB Prov:LOU MAYER MD 09/28/16 Rivaroxaban (Xarelto) 15 Mg Tablet, 15 MG PO WS for 30 Days, #30 TAB Prov:LILLIANA IRELAND APRN 09/28/16 Metoprolol Tartrate (Metoprolol Tartrate) 25 Mg Tablet, 50 MG PO BIDWM for 30 Days, #120 TAB Prov:LILLIANA IRELAND APRN 09/28/16 Losartan Potassium (Cozaar) 50 Mg Tablet, 25 MG PO DAILY for 30 Days Prov:LILLIANA IRELAND APRN 09/28/16 Reported Medications Docusate Sodium (Colace) 100 Mg Capsule, 2 CAP PO DAILY Y for PRN ORDERS, CAP 09/27/16 Lactobacillus Combination No.4 (Probiotic) 1 Each Capsule, BID 09/27/16 Mv-Mn/FA/Vit K/Lycop/Lut/Zeaxa (Ocuvite Eye + Multi Tablet) 1 Each Tablet, 1 TAB PO DAILY 09/04/16 Glucosamine Sulfate 2Kcl (Glucosamine) 1,000 Mg Tablet, 2000 MG PO BID 09/04/16 Hydrocortisone Acetate (Anusol-Hc) 25 Mg Supp.rect, RECTALLY BID Y for PRN ORDERS 08/21/16 Cholecalciferol (Vitamin D3) (Vitamin D-3) 2,000 Unit Capsule, 2000 UNIT PO DAILY 08/21/16 Tramadol HCl (Tramadol HCl) 50 Mg Tablet, 50 MG PO QID Y for PRN ORDERS 08/21/16 Multivit,Ther Iron,Ca,Fa & Min (Theragran-M Caplet) 1 Tab Tablet, 1 TAB PO DAILY 06/02/13 Acetaminophen (Tylenol) 325 Mg Tablet, 650 MG PO TID Y for PAIN 06/02/13 Omeprazole Magnesium (Omeprazole Magnesium) 20 Mg Capsule.dr, 20 MG PO ACB 06/02/13 Simvastatin (Zocor) 20 Mg Tablet, 20 MG PO HS 12/19/09 Ranitidine Hcl (Ranitidine Hcl) 75 Mg Tablet, 75 MG PO BID 12/19/09 Discontinued Reported Medications Amlodipine Besylate (Amlodipine Besylate) 5 Mg Tablet, 5 MG PO BID 09/04/16 Metoprolol Tartrate (Metoprolol Tartrate) 25 Mg Tablet, 25 MG PO BIDWM 08/21/16 Copies To 1: EMBER ALVARADO MD; EMILY FLYNN MD, KAREN D APRN September 28, 2016 11:10 LOU MAYER MD September 28, 2016 14:36
--- NOTE | 2016-09-28 12:18 | NUR ---
status/ DC Pt A/O x3, V/S stable on RA. Ambulating well with 1x assist, denies SOA or dizziness. Urine output good for shift, no BM this shift. IV site taken out, cath tip intact. DC instructions given to pt and daughter, no questions at this time. Pt dressed and personal items gathered. Pt denies pain at this time. Taken to front door at 1210 via WC.
[2016-09-29] MEDS ORDERED: DOCUSATE SODIUM 100 MG CAPSULE PO SCH (09:00)
[2016-09-30 02:38] LABS: FOLATE > 20.0 NG/ML (2.76-20); VITAMIN B12 - BATCH 731 PG/ML (239-931)
--- NOTE | 2016-10-02 07:15 | ECHOF ---
DATE 09/27/[address] Milan Flynn INDICATION Atrial fibrillation, aortic stenosis murmur. TECHNICAL QUALITY Technically adequate 2-D, M-mode, Doppler echocardiographic images were submitted for interpretation, somewhat limited by tachycardia. FINDINGS 1. CARDIAC CHAMBERS. Left atrium is mildly enlarged, measures 4.2 cm. Left ventricle is borderline enlarged based on a measurement of 5.7 cm. Right-sided cardiac chambers are not dilated and exhibit normal contractility. Aortic root diameter of 3.6 cm falls within upper-normal range. 2. LEFT VENTRICLE. Concentric LVH is present, measures 14 mm. Wall motion analysis normal. Left ventricle actually is hyperdynamic, ejection fraction is about 80%. 3. VALVES. Aortic valve is trileaflet, exhibits mild to moderate calcification and sclerosis. The right coronary cusp opening appears restricted. The other two leaflets exhibit normal opening. Overall aortic valve opening appears preserved, especially considering the hemodynamic study with a peak flow velocity of only 1.4 m/sec. At the LVOT level, it was 1.35 m/sec. There is heavy posterior mitral annular calcification extending to leaflets, appear to be affixed. The anterior leaflet exhibits only mild sclerosis at the tip of the leaflet. Valve opening and closure appears adequate. 4. DOPPLER. Analysis shows mild mitral regurgitation, mild to moderate aortic regurgitation. At the mid LV cavity, there is some acceleration of flow, 160 cm/sec, with a delayed upstroke right at the LVOT level, only measured 1.43 m/sec, and the morphology of the envelope appears normal. No turbulence on color-flow Doppler. Mild to moderate aortic regurgitation. Mild tricuspid regurgitation. Systolic PA pressure is estimated at 40 mmHg. 5. No evidence of pericardial effusion, intracardiac masses or demonstrable shunts. Of note, the pressure half-time of aortic insufficiency measured 386 milliseconds. May suggest a more significant aortic regurgitation up to the moderate range. IMPRESSION 1. Left atrial enlargement. 2. Hyperdynamic left ventricle with concentric LVH and ejection fraction of 80%. 3. Mitral annular calcification with mild mitral regurgitation. 4. Sclerotic aortic valve without any significant stenosis, and hemodynamics of up to moderate aortic insufficiency. 5. Mild tricuspid regurgitation. 6. Mild pulmonary hypertension. 7. Normal central venous pressure is suggested. 8. This patient is tachycardic throughout the study and in A-Fib. MTDD
== END 2016-09-28 12:10 | disposition home or self-care (01) ==
LOC: MED 11:36
PROVIDERS: ADMIT Internal Medicine; ATTEND Internal Medicine
DX: I48.91 Unspecified atrial fibrillation (principal); D53.9 Nutritional anemia, unspecified; R53.1 Weakness; K64.8 Other hemorrhoids; K57.30 Diverticulosis of large intestine without perforation or abscess without bleeding; I10 Essential (primary) hypertension; E78.5 Hyperlipidemia, unspecified; Z85.3 Personal history of malignant neoplasm of breast; Z79.899 Other long term (current) drug therapy; Z86.19 Personal history of other infectious and parasitic diseases; E66.3 Overweight; Z68.29 Body mass index [BMI] 29.0-29.9, adult; Z79.02 Long term (current) use of antithrombotics/antiplatelets; Z96.653 Presence of artificial knee joint, bilateral
CPT/HCPCS: 36415; 71020; 80048; 80053; 82607; 82746; 83540; 83735; 83880; 84134; 84443; 84484; 85025; 93306; 96374; 96375; 97161; 97166; A9270; G0378; G0379; G8978; G8979; G8987; G8988; G8989; J2405; 99218